=== PATIENT | female | born 1935 | race Caucasian/White ===

== ENCOUNTER 2016-08-14 17:42 | Emergency (ER) | payer MEDICARE, OTHER ==
[~2016-08-14] VITALS: Ht 162.6 cm; Wt 77.3 kg
[~2016-08-14 17:42] MED LIST: ADVIL 200MG TA200 MG PO; ALAVERT10 M1 PO; ALLEGRA180 MG PO; ALLOPURINOL300 MG PO; AMLOPIDINE PO; ASPIR-LOW81 MG PO; ASPIRIN E.C.325 MG PO; BENICAR 20MG TA20 MG PO; BYSTOLIC PO; BYSTOLIC10 MG PO; CATAPRES-T0.2 MG/24 TD; CELEXA 20MG20 MG/TAB PO; CELEXA10 MG PO; CENTRUM1 TAB PO; CETIRIZINE PO; CITALOPRAM HYDR20 MG PO; COLCHICINE0.6 MG PO; COZAAR100 MG PO; DIAZEPAM PO; DIOVAN 80MG80 MG PO; DIOVAN PO; DIOVAN160 MG PO; ELIMITE TOP; EPA FISH OIL1000 MG PO; FISH OIL CONC1000 MG PO; FLEXERIL5 MG PO; GEMCOR600 MG PO; HCTZ 25MG25 MG PO; INDOMETHACIN25 MG PO; LASIX PO; LEVOTHYROXIN0.025 M1 PO; LORTAB 2.5/5001 TAB PO; MOTRIN 800800 MG/TAB PO; MVI PO; NAPROXEN 3375 MG/TAB PO; NORCO 325 MG-51 TAB PO; NORVASC 10MG10 MG PO; NORVASC10 MG PO; PERCOCET 325 MG1 TA2 PO; PREDNISONE; RED YEAST RICE; SINGULAIR 110 MG/TAB PO; SINGULAIR10 MG PO; TOPROL XL 50MG50 MG PO; TRIAMCINOLONE A15 GM TP; TYLENOL EXTRA500 M1 PO; UNABLE; VALIUM 2MG T2 MG/TAB PO; VICODIN 5/5001 UDTAB PO; VITAMIN D5000 IU PO; ZYRTEC 10MG PO; ZYRTEC 10MG10 MG PO
[2016-08-14 17:43] VITALS: TEMP 98.8
[2016-08-14 18:38] LABS: BASO % 0.3 % (0.0-2.0); EOS # 0.1 (0.0-0.7); EOS % 1.2 % (0-4.0); GRAN # 3.8 (1.4-6.5); GRAN % 57.8 % (42.2-75.2); HEMOGLOBIN 13.6 g/dl (12.5-16.0); LYMPH # 1.7 (1.2-3.4); LYMPH % 25.3 % (20.0-51.0); MEAN CELL VOLUME 89 fl (80.0-100.0); MEAN CORPUSCULAR HEMOGLOBIN 30 pg (27.0-31.0); MEAN CORPUSCULAR HGB CONC 33 g/dl (33.0-37.0); MEAN PLATELET VOLUME 9.8 fl (7.4-10.4); MONO % 14.9 % (1.7-9.3); PLATELET COUNT 245 K/mm3 (130-400); RED BLOOD COUNT 4.61 M/mm3 (4.10-5.30); REDCELL DISTRIBUTION WIDTH-CV 13.1 % (11.5-14.5); WHITE BLOOD COUNT 6.5 K/mm3 (4.8-10.8)
[2016-08-14 18:51] LABS: ALBUMIN 4.2 gm/dL (3.5-5.0); BILIRUBIN,TOTAL 0.8 mg/dL (0.0-1.0); C-REACTIVE PROTEIN 4.2 mg/dL (0.0-0.9); CALCIUM 9.2 mg/dL (8.4-10.2); CREATININE, serum 1.73 mg/dL (0.52-1.25); POTASSIUM 4.4 mmol/L (3.4-5.0)
[2016-08-14] MEDS ORDERED: CHERATUSSIN AC120 ML PO (19:23)
[2016-08-14 22:31] VITALS: BP 130/57; PULSE 62
== END 2016-08-14 19:54 | disposition home or self-care (01) ==
LOC: COL.ER 17:42
PROVIDERS: Family Medicine
DX: J11.1 Influenza due to unidentified influenza virus with other respiratory manifestations (principal); I10 Essential (primary) hypertension; J45.909 Unspecified asthma, uncomplicated
CPT/HCPCS: J2405; J7030

== ENCOUNTER → 2016-10-17 | Outpatient (CLI) | payer MEDICARE, OTHER ==
[~2016-10-17] MED LIST changes: +CHERATUSSIN AC120 ML PO
== END ==
LOC: MC.RAD 14:02
DX: Z12.31 Encounter for screening mammogram for malignant neoplasm of breast (principal)

== ENCOUNTER 2017-10-05 06:47 | Day surgery (SDC) | payer MEDICARE, OTHER ==
[~2017-10-05] VITALS: Ht 167.6 cm; Wt 78.1 kg
[2017-10-05] VITALS (12 sets, daily range): BP systolic 119–172; BP diastolic 48–73; PULSE 16–72; TEMP 97.7
[2017-10-05 07:26] LABS: HEMATOCRIT 40.9 % (37.0-47.0); MEAN CELL VOLUME 86 fl (80.0-100.0); MEAN CORPUSCULAR HEMOGLOBIN 27 pg (27.0-31.0); MEAN CORPUSCULAR HGB CONC 32 g/dl (33.0-37.0); MEAN PLATELET VOLUME 9.2 fl (7.4-10.4); PLATELET COUNT 327 K/mm3 (130-400); RED BLOOD COUNT 4.76 M/mm3 (4.10-5.30); REDCELL DISTRIBUTION WIDTH-CV 13.2 % (11.5-14.5)
[2017-10-05 07:40] LABS: CALCIUM 9.5 mg/dL (8.4-10.2); CREATININE, serum 0.85 mg/dL (0.52-1.25); POTASSIUM 4.4 mmol/L (3.4-5.0)
[2017-10-05 07:44] LABS: PROTHROMBIN TIME 11.5 SECONDS (9.7-12.8)
[2017-10-05] MEDS ORDERED: ASPIRIN 81M81 MG/TA2 PO (08:05)
[2017-10-05] MEDS ORDERED: LIPITOR 10MG10 MG PO (08:25)
[2017-10-05] MEDS ORDERED: LASIX 20MG TABL20 MG PO (08:26)
[2017-10-05 10:17] LABS: ARTERIAL BLD GAS TCO2 CT 30.4; ARTERIAL BLOOD GAS BASE EXCESS 2.6 (-2-2); ARTERIAL BLOOD GAS HCO3 28.8 meq/L (22-26); ARTERIAL BLOOD GAS PCO2 51.2 mmHg (35-45); ARTERIAL BLOOD GAS PO2 88.1 mmHg (80-100); ARTERIAL BLOOD GAS pH 7.37 (7.35-7.45)
[2017-10-05] MEDS ORDERED: TOPROL XL100 MG PO (11:38)
== END 2017-10-05 15:57 | disposition home or self-care (01) ==
LOC: COL.CAR 06:47
PROVIDERS: Internal Medicine Cardiovascular Disease; Nurse Practitioner
DX: I25.10 Atherosclerotic heart disease of native coronary artery without angina pectoris (principal); I35.0 Nonrheumatic aortic (valve) stenosis; I27.20 Pulmonary hypertension, unspecified; I08.3 Combined rheumatic disorders of mitral, aortic and tricuspid valves; I10 Essential (primary) hypertension; E78.5 Hyperlipidemia, unspecified; I42.2 Other hypertrophic cardiomyopathy; M10.9 Gout, unspecified; Z88.0 Allergy status to penicillin; Z88.8 Allergy status to other drugs, medicaments and biological substances; Z79.82 Long term (current) use of aspirin; I49.3 Ventricular premature depolarization
CPT/HCPCS: J2250; J3010; Q9967

== ENCOUNTER 2018-05-05 12:22 | Outpatient (RCR) | payer MEDICARE, OTHER ==
[~2018-05-05 12:22] MED LIST changes: +ASPIRIN 81M81 MG/TA2 PO; +LASIX 20MG TABL20 MG PO; +LIPITOR 10MG10 MG PO; +TOPROL XL100 MG PO
== END 2018-05-11 | disposition home or self-care (01) ==
LOC: COL.CR
DX: Z48.812 Encounter for surgical aftercare following surgery on the circulatory system (principal); Z95.2 Presence of prosthetic heart valve

== ENCOUNTER → 2018-12-10 | Outpatient (CLI) | payer MEDICARE, OTHER | LOC: MC.RAD 08:45 | DX: Z12.31 Encounter for screening mammogram for malignant neoplasm of breast (principal) ==

== ENCOUNTER 2019-01-03 14:15 | Outpatient (RCR) | payer MEDICARE, OTHER | END 2019-01-09 | disposition still patient (30) | LOC: WSST | DX: R49.0 Dysphonia (principal) ==

== ENCOUNTER 2019-01-31 13:00 | Outpatient (RCR) | payer MEDICARE, OTHER | END 2019-03-22 08:15 | disposition home or self-care (01) | LOC: WSST 13:00 | DX: R49.0 Dysphonia (principal) ==

== ENCOUNTER 2020-02-14 11:50 | Emergency (ER) | payer MEDICARE, OTHER ==
[~2020-02-14] VITALS: Ht 167.6 cm; Wt 81.8 kg
[2020-02-14 11:53] VITALS: TEMP 98.2
[2020-02-14] MEDS ORDERED: CELEXA10 MG PO (13:07)
[2020-02-14] MEDS ORDERED: XARELTO15 MG PO (13:25)
[2020-02-14 13:42] VITALS: BP 154/73; PULSE 66
== END 2020-02-14 14:27 | disposition home or self-care (01) ==
LOC: COL.ER 11:50
DX: S40.019A Contusion of unspecified shoulder, initial encounter (principal); Z86.718 Personal history of other venous thrombosis and embolism; Z79.82 Long term (current) use of aspirin; Z88.3 Allergy status to other anti-infective agents; W01.10XA Fall on same level from slipping, tripping and stumbling with subsequent striking against unspecified object, initial encounter; Y92.091 Bathroom in other non-institutional residence as the place of occurrence of the external cause
CPT/HCPCS: J3010

== ENCOUNTER → 2020-04-04 | Outpatient (CLI) | payer MEDICARE ==
[~2020-04-04] MED LIST changes: +XARELTO15 MG PO
== END ==
LOC: MC.RAD 09:23
DX: Z12.31 Encounter for screening mammogram for malignant neoplasm of breast (principal)

== ENCOUNTER 2021-03-08 09:04 | Day surgery (SDC) | payer MEDICARE ==
[~2021-03-08] VITALS: Ht 162.6 cm; Wt 78.4 kg
[2021-03-08 09:29] VITALS: BP 180/69; PULSE 85; TEMP 97.8
[2021-03-08] MEDS ORDERED: LIPITOR 80MG80 MG PO (09:55)
[2021-03-08] MEDS ORDERED: ALDACTONE 25MG25 M1 PO (09:58)
[2021-03-08] MEDS ORDERED: MASON NATURAL2000 IU PO (09:59)
[2021-03-08] MEDS ORDERED: B-121000 MCG PO (09:59)
[2021-03-08] MEDS ORDERED: PROTONIX 40MG T40 MG PO (10:00)
[2021-03-08] MEDS ORDERED: DESYREL 50MG50 MG PO (10:01)
[2021-03-08] MEDS ORDERED: HYDRODIURIL50 MG PO (10:01)
[2021-03-08 11:05] VITALS: BP 152/58; PULSE 59; TEMP 97.3
[2021-03-08 11:15] VITALS: BP 167/61; PULSE 62
[2021-03-08 11:30] VITALS: BP 167/54; PULSE 61
[2021-03-08 11:55] VITALS: BP 124/54; PULSE 56
--- NOTE | 2021-03-08 12:15 | NUR ---
1105: PATIENT ARRIVED BACK INTO BAY [facility]. SIGNIFICANT OTHER AT BEDSIDE. VITALLY STABLE. PATIENT REQUESTING ORANGE JUICE AND MUFFIN, TOLERATED WELL. 1115: VITALLY STABLE. 1130: VITALLY STABLE. DR. SCHAFFER TO SEE PT. QUESTIONS ANSWERED. 1145: PATIENT WENT TO RESTROOM AND GOT DRESSED. 1150: PATIENT ESCORTED TO ENTRANCE OF HOSPITAL VIA WHEELCHAIR, PATIENT'S SO PULLED UP CAR.
== END 2021-03-08 11:54 | disposition home or self-care (01) ==
LOC: SDCO 09:04
DX: D12.3 Benign neoplasm of transverse colon (principal); D12.0 Benign neoplasm of cecum; I10 Essential (primary) hypertension; I34.0 Nonrheumatic mitral (valve) insufficiency; I49.3 Ventricular premature depolarization; I99.8 Other disorder of circulatory system; E78.5 Hyperlipidemia, unspecified; K21.9 Gastro-esophageal reflux disease without esophagitis; M19.90 Unspecified osteoarthritis, unspecified site; M10.9 Gout, unspecified; D50.9 Iron deficiency anemia, unspecified; J30.9 Allergic rhinitis, unspecified; F32.9 Major depressive disorder, single episode, unspecified; F41.9 Anxiety disorder, unspecified; Z20.822 Contact with and (suspected) exposure to COVID-19; Z79.82 Long term (current) use of aspirin; Z79.899 Other long term (current) drug therapy
CPT/HCPCS: J2704; J7120

== ENCOUNTER 2022-04-28 03:11 | Observation (INO) | payer MEDICARE ==
[~2022-04-28] VITALS: Ht 167.6 cm; Wt 72.1 kg
[~2022-04-28 03:11] MED LIST changes: +ADALAT CC60 MG PO; +ALDACTONE 25MG25 M1 PO; +B-121000 MCG PO; +CALCIUM 600600 MG PO; +COREG CR40 MG PO; +DESYREL 50MG50 MG PO; +DOXYCYCLINE HY100 MG PO; +HYDRODIURIL50 MG PO; +LASIX 40MG TABL40 MG PO; +LIPITOR 80MG80 MG PO; +MASON NATURAL2000 IU PO; +OMNICEF 300MG300 MG PO; +PREDNISONE20 MG PO; +PROTONIX 40MG T40 MG PO
[2022-04-28 03:42] LABS: BASO % 0.3 % (0.0-2.0); EOS # 0.4 K/mm3 (0.0-0.7); EOS % 3.7 % (0.0-4.0); GRAN # 8.8 K/mm3 (1.4-6.5); GRAN % 73.9 % (42.2-75.2); HEMATOCRIT 29.4 % (37.0-47.0); HEMOGLOBIN 9.6 g/dl (12.5-16.0); LYMPH # 1.8 K/mm3 (1.2-3.4); LYMPH % 14.7 % (20.0-51.0); MEAN CELL VOLUME 82 fl (80.0-100.0); MEAN CORPUSCULAR HEMOGLOBIN 27 pg (27-31); MEAN CORPUSCULAR HGB CONC 33 g/dl (33.0-37.0); MEAN PLATELET VOLUME 9.1 fl (7.4-10.4); MONO # 0.8 K/mm3 (0.1-0.6); MONO % 6.5 % (1.7-9.3); PLATELET COUNT 407 K/mm3 (130-400); RED BLOOD COUNT 3.57 M/mm3 (4.10-5.30); REDCELL DISTRIBUTION WIDTH-CV 14.4 % (11.5-14.5)
[2022-04-28 04:00] LABS: ALANINE AMINOTRANSFERASE 12 U/L (0-55); ALBUMIN 2.8 gm/dL (3.4-4.8); ALKALINE PHOSPHATASE 75 U/L (40-150); ANION GAP 11 mmol/L (7-16); AST,SGOT 18 U/L (5-34); BILIRUBIN,TOTAL 0.5 mg/dL (0.2-1.2); BLOOD UREA NITROGEN 16 mg/dL (10-20); CALCIUM 8.2 mg/dL (8.4-10.2); CARBON DIOXIDE 21 mmol/L (23-31); CHLORIDE 106 mmol/L (98-107); CREATININE, serum 0.81 mg/dL (0.57-1.11); GLUCOSE 94 mg/dL (70-99); SODIUM 138 mmol/L (136-145); TOTAL PROTEIN 6.5 gm/dL (6.2-8.1)
[2022-04-28 04:08] LABS: TROPONIN-I < 0.010 ng/mL (0.00-0.033)
[2022-04-28 05:13] LABS: COLLECTION METHOD CLEAN CATCH
[2022-04-28 05:21] LABS: SQUAMOUS EPITHELIAL 0-2 /hpf (0-10); URINE BACTERIA None Seen /hpf (NONE SEEN); URINE RBC 0-2 /hpf (0-2)
[2022-04-28 05:22] LABS: PH 7.5 (5.0-8.5); URINE APPEARANCE Clear (CLEAR/HAZY); URINE BLOOD Negative (NEGATIVE); URINE COLOR Yellow (YELLOW); URINE GLUCOSE Negative (NEGATIVE); URINE KETONE Negative (NEGATIVE); URINE NITRATE Negative (NEGATIVE); URINE PROTEIN(semi-quant) TRACE (NEGATIVE); URINE UROBILINOGEN 0.2 E.U/dL (0.2-1.0)
[2022-04-28 09:14] VITALS: BP 164/72; PULSE 58; TEMP 98.1
--- NOTE | 2022-04-28 09:30 | NUR ---
Patient admitted to room 359 from ED. Allergies, medications, and pharmacy reviewed. Admission paperwork completed. Patient hypertensive, but states that she has not take any of her "normal" morning medications. Dr. Kay made of aware. Remainder of VSS. Patient currently requring 2L of O2 via nasal cannula. Denies any SOB at this time. Patient denies any further pain, discomfort, SOA, or further needs at this time. Call light in reach.
--- NOTE | 2022-04-28 11:40 | NUR ---
Patient requested that her money be placed in the hospital safe. Money counted out in front of patient, total of $39.00 counted and placed in sealed envelope. Rachel, Clinical Training Coordinator took custody of envelope. Patient's bank card sent home with her daughter, Mireya.
[2022-04-28 16:00] VITALS: BP 185/57; PULSE 57; TEMP 99
[2022-04-28 18:00] VITALS: BP 155/47
[2022-04-28 20:24] VITALS: BP 151/46; PULSE 63; TEMP 98
--- NOTE | 2022-04-28 20:30 | NUR ---
Initial shift assessment done- very pleasant, o2 at 3L/nc, denies SOB at this time, states has had alot of urine output in the past couple hours- no hat in toilet so one put in now so we can get accurate output. tele on, Denies pain.
[2022-04-29] VITALS (7 sets, daily range): BP systolic 118–141; BP diastolic 38–52; PULSE 52–85; TEMP 97.6–98.8
[2022-04-29 06:18] LABS: BASO % 0.2 % (0.0-2.0); EOS # 0.3 K/mm3 (0.0-0.7); EOS % 2.5 % (0.0-4.0); GRAN # 8.6 K/mm3 (1.4-6.5); GRAN % 69.2 % (42.2-75.2); LYMPH # 2.4 K/mm3 (1.2-3.4); LYMPH % 19.4 % (20.0-51.0); MEAN CELL VOLUME 85 fl (80.0-100.0); MEAN CORPUSCULAR HGB CONC 31 g/dl (33.0-37.0); MEAN PLATELET VOLUME 9.4 fl (7.4-10.4); MONO % 8.1 % (1.7-9.3); PLATELET COUNT 365 K/mm3 (130-400); RED BLOOD COUNT 3.44 M/mm3 (4.10-5.30); REDCELL DISTRIBUTION WIDTH-CV 14.6 % (11.5-14.5)
[2022-04-29 06:33] LABS: HEMATOCRIT 29.1 % (37.0-47.0); MEAN CORPUSCULAR HEMOGLOBIN 26 pg (27-31)
[2022-04-29 06:43] LABS: ALBUMIN 2.3 gm/dL (3.4-4.8); CALCIUM 8.2 mg/dL (8.4-10.2); CREATININE, serum 0.88 mg/dL (0.57-1.11); MAGNESIUM 1.4 mg/dL (1.6-2.6); PHOSPHOROUS 3.5 mg/dL (2.3-4.7); POTASSIUM 3.9 mmol/L (3.5-4.5)
--- NOTE | 2022-04-29 08:00 | NUR ---
Pt sitting up and eating breakfast. Morning medications administered per eMAR; Betablocker held as pt HR is 55. Shift assessment completed. Pt on 1.5L per NC with O2 sat at 94%. Telemetry on; bradycardic. INT in R FA intact. RLE larger than LLE; wrinkles noted on SURAJ. No further requests at this time. Call light within reach.
--- NOTE | 2022-04-29 08:51 | NUR ---
IV lasix given per orders.
--- NOTE | 2022-04-29 09:54 | NUR ---
Initial visit; Patient thanked Core Analysis Operator for stopping by and says she is doing well and would like to be kept in Core Analysis Operator's prayers. Core Analysis Operator wished her well and offered God's blessings.
--- NOTE | 2022-04-29 14:33 | NUR ---
Case Managers met with patient to discuss discharge planning. Patient lives alone at [facility] in [place] and sees Dr. Bosch for primary care. Patient has medications delivered from [facility] pharmacy and does not normally use any DME, but has a walker if needed. Patient does not wear oxygen at home. Patient is normally independent with ADLS and plans to return home at time of discharge. Patient would like to update her DPOA-HC to her daughter, Mireya and grandson, Vishun. YANNI assisted patient in completing the form, then YANNI and YANNI Patel provided witness signature. YANNI provided original and copies to patient, then placed a copy in patient's chart. Discharge Plan: Home
--- NOTE | 2022-04-29 20:00 | NUR ---
Initial shift assessment done- pt sitting at side of bed denies pain, states has some "indigestion/nausea" states the salad she ate earlier did not settle well, will call Naomy ROSARIO for orders, Up to bathroom, voided 200cc clear yellow urine. Back to bed.Tele on.
--- NOTE | 2022-04-29 21:00 | NUR ---
Zofran IV given for nausea/vomiting- has had about 100-200cc emesis,undigested food.
--- NOTE | 2022-04-29 22:00 | NUR ---
Another emesis all over the bed- states she feels better now that "its all out", linens changed, back to bed- will continue to assess.
[2022-04-30 04:40] VITALS: BP 116/45; PULSE 58; TEMP 98.4
--- NOTE | 2022-04-30 06:08 | NUR ---
Has been resting well for the past 3-4 hours, VSS
[2022-04-30 06:50] LABS: BASO % 0.2 % (0.0-2.0); EOS # 0.2 K/mm3 (0.0-0.7); EOS % 1.2 % (0.0-4.0); GRAN # 11.2 K/mm3 (1.4-6.5); GRAN % 77.4 % (42.2-75.2); LYMPH % 13.7 % (20.0-51.0); MEAN CELL VOLUME 84 fl (80.0-100.0); MEAN CORPUSCULAR HGB CONC 32 g/dl (33.0-37.0); MEAN PLATELET VOLUME 9.5 fl (7.4-10.4); MONO % 6.8 % (1.7-9.3); PLATELET COUNT 365 K/mm3 (130-400); RED BLOOD COUNT 3.36 M/mm3 (4.10-5.30); REDCELL DISTRIBUTION WIDTH-CV 14.5 % (11.5-14.5)
[2022-04-30 07:04] LABS: HEMATOCRIT 28.1 % (37.0-47.0); MEAN CORPUSCULAR HEMOGLOBIN 27 pg (27-31)
[2022-04-30 07:11] VITALS: BP 128/43; PULSE 55; TEMP 98.5
[2022-04-30 07:14] LABS: CREATININE, serum 1.16 mg/dL (0.57-1.11); POTASSIUM 4.3 mmol/L (3.5-4.5)
[2022-04-30 07:24] LABS: ALBUMIN 2.5 gm/dL (3.4-4.8); CALCIUM 7.8 mg/dL (8.4-10.2); CREATININE, serum 1.12 mg/dL (0.57-1.11); PHOSPHOROUS 4.3 mg/dL (2.3-4.7); POTASSIUM 4.6 mmol/L (3.5-4.5)
--- NOTE | 2022-04-30 11:20 | NUR ---
Mixer Operator Helper Hot Metal attended clinical rounds with the team and patient may discharge today. Hospitalist discussed Home Health services with patient who is agreeable. Patient will also need two liters of oxygen at home. YANNI met with patient and provided Medicare.gov list of HH agencies. Patient selected [facility]. Patient also stated she has used [facility] in the past for oxygen and would like to use them again. YANNI updated patient's daughter, Mireya on discharge plan. YANNI contacted Nisa at [facility] and faxed referral. YANNI also faxed referral to [facility]. Hospitalist advised they will keep patient another day. YANNI updated [facility] and [facility]. Discharge Plan: Home with [facility]
[2022-04-30 12:07] VITALS: BP 112/49; PULSE 54; TEMP 98.2
[2022-04-30 16:18] VITALS: BP 130/47; PULSE 59; TEMP 97.7
[2022-04-30 19:45] VITALS: BP 134/44; PULSE 57; TEMP 98
--- NOTE | 2022-05-01 00:08 | NUR ---
SHIFT NURSING ASSESSMENT COMPLETED. THE PATIENT WAS NOT IN ANY DISTRESS UPON ASSESSMENT. UPON FLUSHING THE PTS PIV IT WAS NOTED TO BE LEAKING. THE LEFT AC PIV WAS REMOVED AND A NEW 20G RIGHT AC PIV PLACED WITHOUT DIFFICULTY. THE PATIENT DENIED PAIN AT THIS TIME. EVENING MEDICATIONS DISCUSSED AND THE PLAN OF CARE WELL. NO NEEDS EXPRESSED. CALL LIGHT AND PERSONAL BELONGINGS WITHIN REACH. BED IN LOW POSITION AND BED ALARM ON. WILL MONITOR.
[2022-05-01 00:16] VITALS: BP 127/46; PULSE 49; TEMP 98.3
[2022-05-01 03:23] VITALS: BP 138/45; PULSE 53; TEMP 98.3
[2022-05-01 06:38] LABS: BASO % 0.2 % (0.0-2.0); EOS # 0.4 K/mm3 (0.0-0.7); EOS % 3.5 % (0.0-4.0); GRAN % 66.8 % (42.2-75.2); LYMPH # 2.2 K/mm3 (1.2-3.4); LYMPH % 21.1 % (20.0-51.0); MEAN CELL VOLUME 86 fl (80.0-100.0); MEAN CORPUSCULAR HGB CONC 30 g/dl (33.0-37.0); MEAN PLATELET VOLUME 9.9 fl (7.4-10.4); MONO # 0.8 K/mm3 (0.1-0.6); MONO % 7.8 % (1.7-9.3); PLATELET COUNT 348 K/mm3 (130-400); RED BLOOD COUNT 3.41 M/mm3 (4.10-5.30); REDCELL DISTRIBUTION WIDTH-CV 14.5 % (11.5-14.5)
[2022-05-01 06:43] LABS: HEMATOCRIT 29.3 % (37.0-47.0); HEMOGLOBIN 8.9 g/dl (12.5-16.0); MEAN CORPUSCULAR HEMOGLOBIN 26 pg (27-31)
[2022-05-01 06:55] LABS: ALBUMIN 2.5 gm/dL (3.4-4.8); CREATININE, serum 0.94 mg/dL (0.57-1.11); MAGNESIUM 1.7 mg/dL (1.6-2.6); PHOSPHOROUS 3.6 mg/dL (2.3-4.7); POTASSIUM 4.2 mmol/L (3.5-4.5)
[2022-05-01 07:07] VITALS: BP 130/71; PULSE 52; TEMP 98.3
[2022-05-01] MEDS ORDERED: ALDACTONE 25MG25 M1 PO (08:21)
[2022-05-01] MEDS ORDERED: BUMEX 1MG TA1 MG/TA1 PO (08:22)
[2022-05-01] MEDS ORDERED: OXYGEN (08:24)
--- NOTE | 2022-05-01 09:35 | NUR ---
PT AMBULATING AROUND ROOM. MORNING MEDICATIONS GIVEN. SHIFT ASSESSMENT COMPLETED. IV D/C. TELE D/C. PT EAGER TO D/C HOME TO DAY, ORDERS IN PLACE, WAITING FOR PROTABLE O2 TO ARRIVE. PT CURRENTLY REQUIRING 2L VIA NC AT ALL TIMES. PT PERSONAL BELONGINGS OBTAINED FROM [employer] LAUNCH COMMANDER. DENIES ANY OTHER NEEDS AT THIS TIME. WILL CONTINUE TO MONITOR.
--- NOTE | 2022-05-01 11:05 | NUR ---
DISCHARGE INSTRUCTIONS GIVEN, ALL QUESTIONS ANSWERED, FAMILY AT BEDSIDE. PT ENVELOPE RETURNED, PT STATES ALL BELONGINGS ARE NOW IN HER POSSESSION. WAITING FOR PORTABLE OXYGEN TO ARRIVE.
--- NOTE | 2022-05-01 11:52 | NUR ---
PT ESCORTED OFF OF UNIT BY [facility]IA [facility] STAFF.
--- NOTE | 2022-05-01 13:12 | NUR ---
Patient to discharge today. YANNI contacted [facility] and faxed oxygen order. Anirudh with [facility] delivered a portable tank to patient's roon. YANNI contacted [facility] and faxed discharge orders. Discharge Plan: Home with oxygen and [facility]
== END 2022-05-01 11:53 | disposition home or self-care (01) ==
LOC: COL.ER 03:11 → MEDICAL 07:01
PROVIDERS: Internal Medicine; Personal Emergency Response Attendant; ADMIT Internal Medicine
DX: J96.01 Acute respiratory failure with hypoxia (principal); I11.0 Hypertensive heart disease with heart failure; I50.9 Heart failure, unspecified; I25.10 Atherosclerotic heart disease of native coronary artery without angina pectoris; K21.9 Gastro-esophageal reflux disease without esophagitis; E78.5 Hyperlipidemia, unspecified; D64.9 Anemia, unspecified; I07.1 Rheumatic tricuspid insufficiency; Z20.822 Contact with and (suspected) exposure to COVID-19; D72.829 Elevated white blood cell count, unspecified; F32.A Depression, unspecified; Z79.82 Long term (current) use of aspirin; Z79.899 Other long term (current) drug therapy; Z95.2 Presence of prosthetic heart valve; Z95.818 Presence of other cardiac implants and grafts
CPT/HCPCS: A9284; G0378; J1940; J2405; J3475; J7050; Q9967

== ENCOUNTER 2022-05-09 19:30 | Emergency (ER) | payer MEDICARE ==
[~2022-05-09] VITALS: Ht 167.6 cm; Wt 69.1 kg
[2022-05-09 19:30] VITALS: TEMP 97.8
[~2022-05-09 19:30] MED LIST changes: +BUMEX 1MG TA1 MG/TA1 PO; +OXYGEN
[2022-05-09 20:13] LABS: BASO % 0.4 % (0.0-2.0); EOS # 0.3 K/mm3 (0.0-0.7); EOS % 2.5 % (0.0-4.0); GRAN # 7.3 K/mm3 (1.4-6.5); GRAN % 66.7 % (42.2-75.2); HEMATOCRIT 31.1 % (37.0-47.0); LYMPH # 2.5 K/mm3 (1.2-3.4); LYMPH % 23.2 % (20.0-51.0); MEAN CELL VOLUME 83 fl (80.0-100.0); MEAN CORPUSCULAR HEMOGLOBIN 27 pg (27-31); MEAN CORPUSCULAR HGB CONC 32 g/dl (33.0-37.0); MEAN PLATELET VOLUME 9.6 fl (7.4-10.4); MONO # 0.7 K/mm3 (0.1-0.6); MONO % 6.7 % (1.7-9.3); PLATELET COUNT 335 K/mm3 (130-400); RED BLOOD COUNT 3.74 M/mm3 (4.10-5.30); REDCELL DISTRIBUTION WIDTH-CV 14.3 % (11.5-14.5)
[2022-05-09 20:26] LABS: ALBUMIN 3.4 gm/dL (3.4-4.8); BILIRUBIN,TOTAL 0.3 mg/dL (0.2-1.2); CREATININE, serum 1.54 mg/dL (0.57-1.11); TOTAL PROTEIN 6.8 gm/dL (6.2-8.1)
[2022-05-09 20:29] LABS: POTASSIUM 5.8 mmol/L (3.5-4.5)
[2022-05-09 21:44] VITALS: BP 145/60; PULSE 60
== END 2022-05-09 21:46 | disposition home or self-care (01) ==
LOC: COL.ER 19:30
PROVIDERS: Physician Assistant
DX: E87.5 Hyperkalemia (principal)
CPT/HCPCS: J1940

== ENCOUNTER 2022-07-31 23:00 | Emergency (ER) | payer MEDICARE ==
[~2022-07-31] VITALS: Ht 165.2 cm; Wt 71.8 kg
[~2022-07-31 23:00] MED LIST changes: +COREG 25MG25 MG/TAB PO
[2022-07-31 23:01] VITALS: TEMP 98.2
[2022-07-31 23:30] LABS: BASO # 0.1 K/mm3 (0.0-0.2); BASO % 0.3 % (0.0-2.0); EOS # 0.4 K/mm3 (0.0-0.7); EOS % 2.4 % (0.0-4.0); GRAN % 75.1 % (42.2-75.2); HEMOGLOBIN 11.2 g/dl (12.5-16.0); LYMPH # 2.5 K/mm3 (1.2-3.4); LYMPH % 16.9 % (20.0-51.0); MEAN CELL VOLUME 82 fl (80.0-100.0); MEAN CORPUSCULAR HEMOGLOBIN 26 pg (27-31); MEAN CORPUSCULAR HGB CONC 32 g/dl (33.0-37.0); MEAN PLATELET VOLUME 9.7 fl (7.4-10.4); MONO # 0.7 K/mm3 (0.1-0.6); PLATELET COUNT 302 K/mm3 (130-400); RED BLOOD COUNT 4.25 M/mm3 (4.10-5.30); REDCELL DISTRIBUTION WIDTH-CV 15.3 % (11.5-14.5)
[2022-07-31 23:40] LABS: BILIRUBIN,TOTAL 0.6 mg/dL (0.2-1.2); CALCIUM 9.6 mg/dL (8.4-10.2); POTASSIUM 4.3 mmol/L (3.5-4.5)
[2022-07-31 23:46] LABS: TROPONIN-I 0.015 ng/mL (0.00-0.033)
[2022-08-01 00:11] LABS: ALBUMIN 3.7 gm/dL (3.4-4.8); CREATININE, serum 0.92 mg/dL (0.57-1.11); TOTAL PROTEIN 7.4 gm/dL (6.2-8.1)
[2022-08-01] MEDS ORDERED: PAXLOVID CO-PA1 EACH PO (02:39)
[2022-08-01 10:07] VITALS: BP 158/60; PULSE 56
== END 2022-08-01 09:00 | disposition home or self-care (01) ==
LOC: COL.ER 23:00
PROVIDERS: Nurse Practitioner
DX: U07.1 COVID-19 (principal); R06.02 Shortness of breath; I11.0 Hypertensive heart disease with heart failure; I50.9 Heart failure, unspecified; J96.10 Chronic respiratory failure, unspecified whether with hypoxia or hypercapnia; Z99.81 Dependence on supplemental oxygen

== ENCOUNTER 2023-08-03 10:38 | Outpatient (RCR) | payer MEDICARE ==
[~2023-08-03] VITALS: Ht 165.1 cm; Wt 67.4 kg
[2023-08-03] VITALS (12 sets, daily range): BP systolic 137–173; BP diastolic 45–66; PULSE 61–67; TEMP 98.4–98.9
[~2023-08-03 10:38] MED LIST changes: +COREG 6.256.25 MG/TA PO; +ELIQUIS 5MG PO; +FERROUS FUMARA324 MG; +FERROUS GL325 MG/TAB PO; +MULTAQ400 MG PO; +PAXLOVID CO-PA1 EACH PO; +PROCARDIA XL90 MG PO
[2023-08-03] MEDS ORDERED: RECLAST5 MG/100 M IV (11:43)
[2023-08-03] MEDS ORDERED: ADALAT CC30 MG PO (13:23)
[2023-08-03] MEDS ORDERED: ADALAT CC90 MG PO (13:24)
--- NOTE | 2023-08-03 15:21 | NUR ---
Report to Keisha Ocasio.
== END 2023-08-03 17:15 | disposition home or self-care (01) ==
LOC: EUO 10:38
DX: D64.9 Anemia, unspecified (principal)
CPT/HCPCS: J7050; P9016

== ENCOUNTER 2023-08-24 12:30 | Day surgery (SDC) | payer MEDICARE ==
[~2023-08-24] VITALS: Ht 165.1 cm; Wt 67.2 kg
[~2023-08-24 12:30] MED LIST changes: +ADALAT CC30 MG PO; +ADALAT CC90 MG PO; +LR 1,000 ML IV SCH; +Ondansetron 4 MG/2 ML VIAL IV PRN; +RECLAST5 MG/100 M IV
[2023-08-24] MEDS ORDERED: ELIQUIS 5MG PO (13:15)
[2023-08-24 15:15] VITALS: BP 115/82; PULSE 57; TEMP 98.1
[2023-08-24 15:30] VITALS: BP 153/83; PULSE 60
[2023-08-24 15:45] VITALS: BP 155/80; PULSE 58
[2023-08-24 15:48] VITALS: BP 157/51; PULSE 65; TEMP 97.8
--- NOTE | 2023-08-24 15:50 | NUR ---
1305 PT TO [facility] VIA WHEEL CHAIR. PT ABLE TO TRANSFER FROM THE WHEEL CHAIR TO THE RECLINER INDEPENDENTLY. REPORTS THAT SHE DOES NOT USE AN ASSISTIVE DEVICE AT HOME. PT IS WEARING O2 VIA NC AT 2L. SHE STATES SHE NORMALLY ONLY USES O2 AT NIGHT AND SOMETIMES WHEN SHE IS AWAY FROM HOME. PT IS ALERT AND ORIENTED. CONSENTS REVIEWED AND SIGNED BY PT. IV ESTABLISHED. LR INFUSING VIA GRAVITY AT KVO. CALL LIGHT IS IN REACH. WARM BLANKETS PROVIDED.
--- NOTE | 2023-08-24 16:07 | NUR ---
1515 PATIENT RETURNS TO [facility] VIA CART. PT AWAKE AND ALERT. RESPIRATIONS UNLABORED. AMBULATED TO RECLINER CHAIR WITH 2:1 SBA. PT DENIES NAUSEA OR ABDOMINAL PAIN. HOOKED UP TO MONITOR AND VS OBTAINED. CALL LIGHT AT SIDE AND DAUGHTER PRESENT. 1519 PATIENT TOLERATING PEPSI AND MUFFIN WITHOUT NAUSEA OR DIFFICULTY SWALLOWING (EGD ONLY). 1530 DR. PEDERSON IN ROOM SPEAKING WITH PATIENT. 1535 D/C INSTRUCTIONS REVIEWED WITH PATIENT. PT VERBALIZED UNDERSTANDING AND A COPY OF INSTRUCTIONS PROVIDED IN D/C FOLDER. 1540 PATIENT DRESSES SELF. 1550 PATIENT DISCHARGED FROM UNIT VIA W/C TO A PERSONAL VEHICLE. PT LEFT HOSPITAL IN STABLE CONDITION.
== END 2023-08-24 15:50 | disposition home or self-care (01) ==
LOC: SDCO 12:30
DX: K31.7 Polyp of stomach and duodenum (principal); K44.9 Diaphragmatic hernia without obstruction or gangrene; K92.1 Melena; K55.20 Angiodysplasia of colon without hemorrhage; K64.0 First degree hemorrhoids; K57.30 Diverticulosis of large intestine without perforation or abscess without bleeding; D50.9 Iron deficiency anemia, unspecified; Z86.010 Personal history of colon polyps
CPT/HCPCS: J2704; J7120

== ENCOUNTER 2023-09-28 14:27 | Inpatient (IN) | payer MEDICARE ==
[~2023-09-28] VITALS: Ht 165.1 cm; Wt 65.5 kg
[2023-09-28] VITALS (20 sets, daily range): BP systolic 47–174; BP diastolic 39–85; PULSE 55–69; TEMP 97.5–98.6
[~2023-09-28 14:27] MED LIST changes: -LR 1,000 ML IV SCH; -Ondansetron 4 MG/2 ML VIAL IV PRN
[2023-09-28] MEDS ORDERED: Pantoprazole 40 MG in NS 100 ML IV ONE (14:45)
[2023-09-28] MEDS ORDERED: Pantoprazole 80 MG in NS 100 ML IV ONE (14:45)
[2023-09-28] MEDS ORDERED: NS 500 ML IV ONE (14:45)
[2023-09-28 15:13] LABS: BASO % 0.3 % (0.0-2.0); EOS # 0.2 K/mm3 (0.0-0.7); EOS % 1.4 % (0.0-4.0); GRAN # 9.9 K/mm3 (1.4-6.5); GRAN % 72.9 % (42.2-75.2); LYMPH # 2.8 K/mm3 (1.2-3.4); LYMPH % 20.7 % (20.0-51.0); MEAN CELL VOLUME 85 fl (80.0-100.0); MEAN CORPUSCULAR HGB CONC 30 g/dl (33.0-37.0); MEAN PLATELET VOLUME 9.5 fl (7.4-10.4); MONO # 0.6 K/mm3 (0.1-0.6); MONO % 4.3 % (1.7-9.3); PLATELET COUNT 345 K/mm3 (130-400); RED BLOOD COUNT 2.33 M/mm3 (4.10-5.30)
[2023-09-28 15:19] LABS: HEMATOCRIT 19.7 % (37.0-47.0); HEMOGLOBIN 5.9 g/dl (12.5-16.0); MEAN CORPUSCULAR HEMOGLOBIN 25 pg (27-31)
[2023-09-28 15:23] LABS: INR 1.7 (0.8-3.0); PROTHROMBIN TIME 18.8 SECONDS (9.7-12.8)
[2023-09-28 15:26] LABS: PARTIAL THROMBOPLASTIN TIME 35.7 SECONDS (26.0-37.0)
[2023-09-28 15:28] LABS: ALBUMIN 3.4 gm/dL (3.4-4.8); CALCIUM 9.3 mg/dL (8.4-10.2); CREATININE, serum 1.4 mg/dL (0.57-1.11); MAGNESIUM 2.1 mg/dL (1.6-2.6); POTASSIUM 5.1 mmol/L (3.5-4.5); TOTAL PROTEIN 6.8 gm/dL (6.2-8.1)
[2023-09-28 15:45] LABS: TROPONIN-I 0.1 ng/mL (0.00-0.033)
[2023-09-28 15:53] LABS: BILIRUBIN,TOTAL 0.3 mg/dL (0.2-1.2)
[2023-09-28] MEDS ORDERED: WATER FOR INJECTION STERILE IV ONE (18:00)
[2023-09-28] MEDS ORDERED: PROTHROMBIN COMPLEX HUMAN IV ONE (18:00)
[2023-09-28 18:04] LABS: COLLECTION METHOD CLEAN CATCH
[2023-09-28 18:12] LABS: PH 5.5 (5.0-8.5); URINE APPEARANCE CLEAR (CLEAR/HAZY); URINE BLOOD 1+ (NEGATIVE); URINE COLOR YELLOW (YELLOW); URINE GLUCOSE NEGATIVE (NEGATIVE); URINE KETONE NEGATIVE (NEGATIVE); URINE NITRATE NEGATIVE (NEGATIVE); URINE PROTEIN(semi-quant) NEGATIVE (NEGATIVE); URINE UROBILINOGEN 0.2 E.U/dL (0.2-1.0)
[2023-09-28] MEDS ORDERED: COZAAR 50MG50 MG/TAB PO (19:37)
[2023-09-28] MEDS ORDERED: SYNTHROID 0.0.025 MG PO (19:37)
[2023-09-28] MEDS ORDERED: SYNTHROID0.05 MG/TA PO (19:38)
--- NOTE | 2023-09-28 20:42 | NUR ---
LAB CALLED MIRA ALATORRE AT 20:25 WITH A TROPONIN OF 0.106. RIAZ CLINE APRN NOTIFIED AT 20:30
[2023-09-28] MEDS ORDERED: Albuterol/Ipratropium 3 MG-0.5 MG/3 ML Neb Soln IH PRN (20:45)
[2023-09-28] MEDS ORDERED: NS 1,000 ML IV SCH (21:30)
[2023-09-28] MEDS ORDERED: Melatonin 3 MG TAB PO PRN (23:30)
[2023-09-29] VITALS (16 sets, daily range): BP systolic 128–181; BP diastolic 37–60; PULSE 54–86; TEMP 97.7–98.3
[2023-09-29 03:04] LABS: HEMATOCRIT 22.2 % (37.0-47.0); HEMOGLOBIN 7.3 g/dl (12.5-16.0)
[2023-09-29 03:14] LABS: CREATININE, serum 1.15 mg/dL (0.57-1.11); MAGNESIUM 1.9 mg/dL (1.6-2.6); PHOSPHOROUS 3.5 mg/dL (2.3-4.7); POTASSIUM 4.2 mmol/L (3.5-4.5)
[2023-09-29 07:13] LABS: BASO # 0.1 K/mm3 (0.0-0.2); BASO % 0.5 % (0.0-2.0); EOS # 0.3 K/mm3 (0.0-0.7); EOS % 2.7 % (0.0-4.0); GRAN # 6.7 K/mm3 (1.4-6.5); GRAN % 64.2 % (42.2-75.2); LYMPH # 2.6 K/mm3 (1.2-3.4); LYMPH % 24.4 % (20.0-51.0); MEAN CELL VOLUME 83 fl (80.0-100.0); MEAN CORPUSCULAR HEMOGLOBIN 27 pg (27-31); MEAN CORPUSCULAR HGB CONC 32 g/dl (33.0-37.0); MEAN PLATELET VOLUME 9.5 fl (7.4-10.4); MONO # 0.8 K/mm3 (0.1-0.6); MONO % 7.7 % (1.7-9.3); PLATELET COUNT 250 K/mm3 (130-400); RED BLOOD COUNT 2.73 M/mm3 (4.10-5.30); REDCELL DISTRIBUTION WIDTH-CV 16.4 % (11.5-14.5)
--- NOTE | 2023-09-29 08:15 | NUR ---
Pt A&O x4 upon morning shift assessment. Oxygen of 99 on 2L O2. Apical pulse of 53. INT to both R and L forearm w/ no signs of redness or irritation. Applied SCDs to BLE. Pt resting in bed with HOB elevated. Call light in reach, no complaints at this time.
[2023-09-29] MEDS ORDERED: Citalopram 20 MG TAB PO SCH (09:00)
--- NOTE | 2023-09-29 09:05 | NUR ---
Patient alert and oriented x4. Shift assessment complete, denies pain at this time. No stools this morning or overnight. NPO at this time until GI consult complete, update provided to GI doctor over the phone. Patient ambulating SBA to bathroom, gait steady with no assistive devices. Call light within reach, all needs met at this time.
[2023-09-29] MEDS ORDERED: Cetirizine 10 MG TAB PO SCH (11:20)
[2023-09-29] MEDS ORDERED: Cholecalciferol (Vit D3) 1000 Units TAB PO SCH (11:20)
[2023-09-29] MEDS ORDERED: Montelukast 10 MG TAB PO SCH (11:20)
[2023-09-29] MEDS ORDERED: MULTAQ400 MG PO (11:27)
[2023-09-29] MEDS ORDERED: COREG 6.256.25 MG/TA PO (11:31)
[2023-09-29] MEDS ORDERED: VITAMINC1000TA PO (12:39)
--- NOTE | 2023-09-29 16:46 | NUR ---
cushion worker met with patient to discuss discharge planning. Patient lives in [place] by herself. PCP is Dr. Bosch, Pharmacy is [facility] in [place]. Best point of contact is Mireya (daughter) [phone]. No issues affording medications. DPOA-HC is Mireya, does not have a copy at the hospital, requesting from PCP. Patient would like a walker if recommended at discharge as she has one from her late but it is too large for her. Patient reports to be independent with ADLS normally and is able to transport to and from appointments. Patient would like to return home at time of discharge. Patient reports concerns with housekeeping. SW provided the private duty caregivers for chore services from the [facility]. Patient is interested in home health services for PT/OT/Nursing. SW provided the Medicare.gov list of options for home health. SW will follow up. Discharge plan: Home with possibly home health
--- NOTE | 2023-09-29 18:55 | NUR ---
Patient remains stable, ambulates frequently around room. Denies pain or discomfort. Tolerating advanced diet from clear liquids to heart healthy well. Call light within reach, all needs met at this time.
--- NOTE | 2023-09-29 22:00 | NUR ---
Patient resting in bed. Denies any pain or needs at this time. Assessment complete. IV in right forearm and left wrist flush easily with no complications. Call light and personal items in reach. Bed in low position and bed alarm on.
[2023-09-30] VITALS (9 sets, daily range): BP systolic 162–182; BP diastolic 51–72; PULSE 47–55; TEMP 98.1–98.2
--- NOTE | 2023-09-30 02:00 | NUR ---
Hospitalist Hammad called for patients blood pressure of 181/60 and that was the lowest on we could get. Patient has been hypertensive but not that high. Hospitalist notified.
--- NOTE | 2023-09-30 06:30 | NUR ---
Patient resting in bed. Denies any pain or needs at this time. No changes over night. Call light and personal items in reach. Bed in low position and bed alarm on.
[2023-09-30 08:45] LABS: BASO % 0.3 % (0.0-2.0); EOS # 0.5 K/mm3 (0.0-0.7); EOS % 5.3 % (0.0-4.0); GRAN # 6.7 K/mm3 (1.4-6.5); GRAN % 70.9 % (42.2-75.2); LYMPH # 1.5 K/mm3 (1.2-3.4); LYMPH % 16.3 % (20.0-51.0); MEAN CELL VOLUME 86 fl (80.0-100.0); MEAN CORPUSCULAR HGB CONC 31 g/dl (33.0-37.0); MEAN PLATELET VOLUME 9.4 fl (7.4-10.4); MONO # 0.7 K/mm3 (0.1-0.6); MONO % 6.9 % (1.7-9.3); PLATELET COUNT 245 K/mm3 (130-400); REDCELL DISTRIBUTION WIDTH-CV 16.3 % (11.5-14.5)
[2023-09-30 08:48] LABS: HEMOGLOBIN 7.4 g/dl (12.5-16.0); MEAN CORPUSCULAR HEMOGLOBIN 26 pg (27-31)
[2023-09-30] MEDS ORDERED: NIFEdipine XL 60 MG TAB PO SCH (09:00)
[2023-09-30] MEDS ORDERED: NIFEdipine XL 30 MG TAB PO SCH (09:00)
[2023-09-30] MEDS ORDERED: Carvedilol 6.25 MG TAB PO SCH (09:00)
[2023-09-30] MEDS ORDERED: Losartan 50 MG TAB PO SCH (09:00)
[2023-09-30 09:01] LABS: CALCIUM 8.4 mg/dL (8.4-10.2); CREATININE, serum 0.93 mg/dL (0.57-1.11); POTASSIUM 4.1 mEq/L (3.5-4.5)
[2023-09-30] MEDS ORDERED: PROTONIX 40MG T40 MG PO (09:51)
--- NOTE | 2023-09-30 10:22 | NUR ---
Pt awake, alert and oriented. Denies pain, shortness of breath, or dizziness. Bed in lowest position with call light within reach. Call light within reach, bed in lowest position.
--- NOTE | 2023-09-30 16:39 | NUR ---
Discharged to home, educated on discharge instructions and medications. Pt verbalized understanding. All belongings sent home with patient. IV and monitor technician removed prior to discharge. Assisted to car by nursing staff.
== END 2023-09-30 16:40 | disposition home or self-care (01) | DRG 378 ==
LOC: COL.ER 14:27 → MEDICAL 18:22
PROVIDERS: Internal Medicine; Nurse Practitioner Family; ADMIT Internal Medicine
PROC: 30233N1 Transfusion of Nonautologous Red Blood Cells into Peripheral Vein, Percutaneous Approach (ICD-10-PCS; principal; 2023-09-28)
DX: K31.811 Angiodysplasia of stomach and duodenum with bleeding (principal); D62 Acute posthemorrhagic anemia; I50.32 Chronic diastolic (congestive) heart failure; I13.0 Hypertensive heart and chronic kidney disease with heart failure and stage 1 through stage 4 chronic kidney disease, or unspecified chronic kidney disease; J96.11 Chronic respiratory failure with hypoxia; I24.89 Other forms of acute ischemic heart disease; N17.9 Acute kidney failure, unspecified; E78.5 Hyperlipidemia, unspecified; F32.A Depression, unspecified; K21.9 Gastro-esophageal reflux disease without esophagitis; I48.0 Paroxysmal atrial fibrillation; F41.9 Anxiety disorder, unspecified; E03.9 Hypothyroidism, unspecified; I27.20 Pulmonary hypertension, unspecified; K57.30 Diverticulosis of large intestine without perforation or abscess without bleeding; J45.909 Unspecified asthma, uncomplicated; K27.4 Chronic or unspecified peptic ulcer, site unspecified, with hemorrhage; M19.90 Unspecified osteoarthritis, unspecified site; I08.2 Rheumatic disorders of both aortic and tricuspid valves; H26.9 Unspecified cataract; I25.10 Atherosclerotic heart disease of native coronary artery without angina pectoris; N18.30 Chronic kidney disease, stage 3 unspecified; Z88.0 Allergy status to penicillin; Z88.8 Allergy status to other drugs, medicaments and biological substances; Z95.2 Presence of prosthetic heart valve; Z86.16 Personal history of COVID-19; Z87.01 Personal history of pneumonia (recurrent); Z79.899 Other long term (current) drug therapy; Z79.82 Long term (current) use of aspirin; Z79.01 Long term (current) use of anticoagulants; Z99.81 Dependence on supplemental oxygen; Z79.890 Hormone replacement therapy; Z95.818 Presence of other cardiac implants and grafts; Z23 Encounter for immunization
CPT/HCPCS: C9113; J0612; J7040; J7168; P9016

== ENCOUNTER 2023-10-13 11:32 | Inpatient (IN) | payer MEDICARE ==
[2023-10-13] VITALS (7 sets, daily range): BP systolic 126–147; BP diastolic 45–76; PULSE 58–65; TEMP 97.7–98.7
[~2023-10-13] VITALS: Ht 165.1 cm; Wt 67.7 kg
[~2023-10-13 11:32] MED LIST changes: +COZAAR 50MG50 MG/TAB PO; +SYNTHROID 0.0.025 MG PO; +SYNTHROID0.05 MG/TA PO; +VITAMINC1000TA PO
[2023-10-13 12:22] LABS: BASO % 0.4 % (0.0-2.0); EOS # 0.4 K/mm3 (0.0-0.7); EOS % 4.4 % (0.0-4.0); GRAN % 72.1 % (42.2-75.2); LYMPH # 1.6 K/mm3 (1.2-3.4); MEAN CELL VOLUME 86 fl (80.0-100.0); MEAN CORPUSCULAR HGB CONC 30 g/dl (33.0-37.0); MEAN PLATELET VOLUME 9.3 fl (7.4-10.4); MONO # 0.7 K/mm3 (0.1-0.6); MONO % 6.9 % (1.7-9.3); PLATELET COUNT 269 K/mm3 (130-400); RED BLOOD COUNT 2.99 M/mm3 (4.10-5.30); REDCELL DISTRIBUTION WIDTH-CV 16.3 % (11.5-14.5)
[2023-10-13 12:26] LABS: HEMATOCRIT 25.6 % (37.0-47.0); HEMOGLOBIN 7.7 g/dl (12.5-16.0); MEAN CORPUSCULAR HEMOGLOBIN 26 pg (27-31)
[2023-10-13 12:39] LABS: ALBUMIN 3.2 g/dL (3.4-4.8); BILIRUBIN,TOTAL 0.5 mg/dL (0.2-1.2); CALCIUM 8.6 mg/dL (8.4-10.2); CREATININE, serum 1.65 mg/dL (0.57-1.11); POTASSIUM 5.7 mEq/L (3.5-4.5); TOTAL PROTEIN 6.7 g/dl (6.2-8.1)
[2023-10-13 12:56] LABS: TROPONIN-I 0.051 ng/mL (0.00-0.033)
[2023-10-13] MEDS ORDERED: Furosemide 40 MG/4 ML VIAL IV ONE (13:30)
[2023-10-13] MEDS ORDERED: *Potassium Replacement Protocol MC SCH (14:45)
[2023-10-13] MEDS ORDERED: Patiromer 8.4 G Oral Susp **** subs to Sodium Zirconium Cyclosilicate 10 G Oral Susp PO ONE (16:00)
[2023-10-13] MEDS ORDERED: Losartan 50 MG TAB PO SCH (16:02)
[2023-10-13] MEDS ORDERED: NIFEdipine XL 60 MG TAB PO SCH (16:03)
[2023-10-13] MEDS ORDERED: Sodium Zirconium Cyclosilicate for Oral Susp 10 GM PACKET PO ONE (16:30)
[2023-10-13] MEDS ORDERED: Carvedilol 6.25 MG TAB PO SCH (17:00)
[2023-10-13] MEDS ORDERED: NIFEdipine XL 30 MG TAB PO SCH (21:00)
--- NOTE | 2023-10-13 21:43 | NUR ---
patient lying in bed, alert and oriented x4. pt denies chest pain and reports shortness of breath with exertion. pt reports burning in nose from oxygen, humidified oxygen applied and o2 reduced from 6L sats at 97% to 4L sats at 94%. IV in RAC is patent , site is clean dry and intact. nonpitting edema in BLE, small scattered bruising on extremities noted. pt uses call light effectively for help to bathroom/getting up, ambulates with steady gait. pt has no further needs, quesitons, or concerns at this time. call light within reach, will continue to monitor.
[2023-10-14] VITALS (12 sets, daily range): BP systolic 117–148; BP diastolic 53–64; PULSE 51–76; TEMP 97.9–98.5
[2023-10-14 06:23] LABS: BASO # 0.1 K/mm3 (0.0-0.2); BASO % 0.5 % (0.0-2.0); EOS # 0.4 K/mm3 (0.0-0.7); EOS % 4.6 % (0.0-4.0); GRAN # 6.7 K/mm3 (1.4-6.5); GRAN % 70.5 % (42.2-75.2); LYMPH # 1.7 K/mm3 (1.2-3.4); LYMPH % 17.5 % (20.0-51.0); MEAN CORPUSCULAR HGB CONC 32 g/dl (33.0-37.0); MEAN PLATELET VOLUME 9.6 fl (7.4-10.4); MONO # 0.6 K/mm3 (0.1-0.6); MONO % 6.6 % (1.7-9.3); PLATELET COUNT 245 K/mm3 (130-400); RED BLOOD COUNT 2.88 M/mm3 (4.10-5.30); REDCELL DISTRIBUTION WIDTH-CV 16.1 % (11.5-14.5)
[2023-10-14 06:24] LABS: HEMATOCRIT 23.3 % (37.0-47.0); HEMOGLOBIN 7.5 g/dl (12.5-16.0); MEAN CORPUSCULAR HEMOGLOBIN 26 pg (27-31)
[2023-10-14 06:25] LABS: MEAN CELL VOLUME 81 fl (80.0-100.0)
[2023-10-14 06:46] LABS: ALBUMIN 2.7 g/dL (3.4-4.8); CALCIUM 8.2 mg/dL (8.4-10.2); CREATININE, serum 1.45 mg/dL (0.57-1.11); MAGNESIUM 1.9 mg/dL (1.6-2.6); PHOSPHOROUS 3.8 mg/dL (2.3-4.7); POTASSIUM 4.5 mEq/L (3.5-4.5)
[2023-10-14] MEDS ORDERED: Montelukast 10 MG TAB PO SCH (09:00)
[2023-10-14] MEDS ORDERED: Furosemide 40 MG/4 ML VIAL IV SCH (09:00)
[2023-10-14] MEDS ORDERED: Citalopram 20 MG TAB PO SCH (09:00)
--- NOTE | 2023-10-14 09:29 | NUR ---
Initial visit; Patient thanked Neonatal Surgeon for looking in on her and offering God's blessings and to keep her in Neonatal Surgeon's prayers.
--- NOTE | 2023-10-14 09:55 | NUR ---
assessnebt complete. telementry on HR regular. diminished lung sounds bilateral lower bases. SPO2 91 on 6L O2 per nasal cannula . INT RAC intact. no c/o of pain at this time.
[2023-10-14] MEDS ORDERED: Carvedilol 6.25 MG TAB PO ONE (10:00)
--- NOTE | 2023-10-14 11:03 | NUR ---
mill worker met with pt to discuss discharge planning. She reports to live alone in [place]. She sees Dr. Banda and obtains medications from [facility] with no difficulties. She reports to be independent with ADLS and uses oxygen through [facility] almost 24 hours a day. She reports her daughter/DPOA-HC as Mireya [phone]. YANNI verified this on file. PT/OT Pending Discharge Plan: home, pending evals
--- NOTE | 2023-10-14 11:34 | NUR ---
Call placed to cofirm with cardiology dose of coreg while HR in upper 50's. Cardiology confirmed order. To be administered.
--- NOTE | 2023-10-14 12:58 | NUR ---
PT was given Coreg per cardiology order. PT apical pulse was 56 prior to administration. RN was notified and called cardiology to confirm administration. PT denies feeling lightheaded, nauseous, or headache at this time. Pulse is currently at 50 bpm. Will confinue to monitor.
[2023-10-14] MEDS ORDERED: Ferrous Sulfate 325 MG TAB PO ONE (15:30)
[2023-10-14] MEDS ORDERED: Carvedilol 6.25 MG TAB PO SCH (17:00)
--- NOTE | 2023-10-14 20:56 | NUR ---
Shift assessment complete. Patient is laying in bed reading magazines. Denies any pain at this time. Call light is within reach and bed is locked and in low position.
[2023-10-15] VITALS (19 sets, daily range): BP systolic 101–155; BP diastolic 39–71; PULSE 51–62; TEMP 97.6–99.8
--- NOTE | 2023-10-15 07:15 | NUR ---
PATIENT RESTING QUIETLY IN BED. BP 133/30; REPEATED AT 0745; RESULT 130/67. HR AND RHYTHM REGULAR. RR 24; PT SPO2 95% ON 4LPM VIA NASAL CANULA. PATIENT STATES THAT UNPRODUCTIVE COUGH STARTED THIS AM. EXPIRATORY WHEEZES AUSCULTATED IN UPPER BILATERAL LOBES. OTHER LOBES CLEAR TO AUSCULTATION. PATIENT DENIES SHORTNESS OF AIR. PATIENT DENIES PAIN AT THIS TIME AND DENIES ANY OTHER NEEDS AT THIS TIME. PATIENT ORDERED BREAKFAST. CALL LIGHT WITHIN REACH.
[2023-10-15 07:49] LABS: BASO % 0.5 % (0.0-2.0); EOS # 0.5 K/mm3 (0.0-0.7); EOS % 6.7 % (0.0-4.0); GRAN # 4.8 K/mm3 (1.4-6.5); GRAN % 64.2 % (42.2-75.2); LYMPH # 1.6 K/mm3 (1.2-3.4); MEAN CELL VOLUME 84 fl (80.0-100.0); MEAN CORPUSCULAR HGB CONC 31 g/dl (33.0-37.0); MEAN PLATELET VOLUME 9.7 fl (7.4-10.4); MONO # 0.5 K/mm3 (0.1-0.6); MONO % 7.3 % (1.7-9.3); PLATELET COUNT 273 K/mm3 (130-400); RED BLOOD COUNT 2.78 M/mm3 (4.10-5.30); REDCELL DISTRIBUTION WIDTH-CV 15.9 % (11.5-14.5)
[2023-10-15 07:51] LABS: HEMATOCRIT 23.3 % (37.0-47.0); HEMOGLOBIN 7.2 g/dl (12.5-16.0); MEAN CORPUSCULAR HEMOGLOBIN 26 pg (27-31)
[2023-10-15 08:10] LABS: ALBUMIN 2.7 g/dL (3.4-4.8); CALCIUM 8.5 mg/dL (8.4-10.2); CREATININE, serum 1.59 mg/dL (0.57-1.11); MAGNESIUM 1.8 mg/dL (1.6-2.6); PHOSPHOROUS 4.2 mg/dL (2.3-4.7); POTASSIUM 4.2 mEq/L (3.5-4.5)
--- NOTE | 2023-10-15 09:45 | NUR ---
Patient alert and oriented x4. Denies pain or discomfort. Complains of cough, lung sounds noted to have crackels to bilateral bases. Shortness of breath noted upon exertion. Stable on 4L, baseline is 2L. Orders received for thoracentesis today. Consent obtained from patient. Activity stable with no assistive devices. Appetite adequate, ate 90% of breakfast. Morning medications administered by nursing program chair and instructor. Call light within reach, all needs met at this time.
[2023-10-15 09:48] LABS: INR 1.1 (0.8-3.0); PROTHROMBIN TIME 11.8 SECONDS (9.7-12.8)
--- NOTE | 2023-10-15 13:59 | NUR ---
Patient off unit at this time for thoracentesis procedure.
--- NOTE | 2023-10-15 16:20 | NUR ---
Pt sitting up in chair. Blood transfusion started. s/s of blood transfusion reactions discussed with patient- pt verbalizes understanding. See flowsheet for details. Family sitting at bedside.
--- NOTE | 2023-10-15 16:35 | NUR ---
This nurse remained in room for the first 15 minutes of PRBC transfusion. Pt denies s/s transfusion reaction. Transfusion increased to 120ml/hr. Continues to sit up in chair. Visitors at bedside.
[2023-10-15 18:01] LABS: PLEURAL FLUID RBC 13000 /mm3 (0-0); PLEURAL FLUID WBC 882 /mm3
--- NOTE | 2023-10-15 18:33 | NUR ---
Patient sitting up in recliner and eating dinner, continues to tolerate blood transfusion well. IV site is intact, no signs of infiltration noted at this time. Blood infusing at 120ml/hr. Denies pain or discomfort, just states she feels cold. Warm blanket provided. Call light within reach, all needs met at this time.
[2023-10-15 18:43] LABS: PLEURAL FLUID COLOR PINK
[2023-10-15 18:45] LABS: PLEURAL FLUID APPEARANCE CLOUDY
--- NOTE | 2023-10-15 19:15 | NUR ---
Assessment complete. A&Ox3. Sitting up in chair-blood transfusion infusing to right AC 20g without difficulty. VS stable. Noted to have coarse crackles to bilat upper lung emery/diminished bases. Currently on 4L/NC with adequate O2 saturation. Tele reporting SB. Bandaid to left upper back CDI. Plan of care discussed for this shift to include meds/transfusion/lab draw/calling for questions/concerns verbalies understanding. Call light in reach. Will monitor.
--- NOTE | 2023-10-15 19:33 | NUR ---
Transfusion complete. No s/s of reaction noted.
[2023-10-15 22:48] LABS: HEMATOCRIT 25.9 % (37.0-47.0); HEMOGLOBIN 8.4 g/dl (12.5-16.0)
--- NOTE | 2023-10-15 23:20 | NUR ---
Patient called concerned BP is low. Currently 119/48. Discussed lasix dosing. Also discussed MAP of 62. Verbalizes understanding. States she would like to be "hooked up to a cuff and monitored closely." Abena on with 30min intervals. Denies any S/S of hypotension. WIll monitor.
[2023-10-16] VITALS (8 sets, daily range): BP systolic 119–138; BP diastolic 42–61; PULSE 61–65; TEMP 98.4–98.7
--- NOTE | 2023-10-16 01:02 | NUR ---
Blood pressure continues to stable 110-120/52-68. DIscussd with patient. Still would like to continue to have cuff on. On at this time for reassurance. Will continue to monitor.
--- NOTE | 2023-10-16 05:45 | NUR ---
Patient rested off and on this shift. Received one unit of blood that finished at approx 1930. Did have one episode of lower blood pressure that concerned patient but currently is WNL. TELE reporting SB. O2@4L/NC. VS stable. Right AC INT flushes without difficulty-no s/s of infiltration noted. Bandaid to left side of back from [facility]. Currently resting with eyes closed. No s/s of pain or discomfort noted. Will monitor.
--- NOTE | 2023-10-16 07:10 | NUR ---
PATIENT RESTING QUIETLY IN BED. VS WNL; DENIES PAIN AT THIS TIME. PATIENT SPO2 98% ON 3LPM VIA NASAL CANNULA; REPORTS NO SHORTNESS OF BREATH OR COUGH. BANDAID DRESSING ON LEFT MID-BACK CLEAN, DRY, INTACT. PATIENT ORDERING BREAKFAST; CALL LIGHT WITHIN REACH.
--- NOTE | 2023-10-16 07:40 | NUR ---
REPORTED TO MIRA SHAH THAT PATIENT SPO2 98% ON 3LPM VIA NASAL CANNULA. INSTRUCTED TO DECREASE O2 TO 2LPM AND RECHECK IN 30 MIN. PATIENT ADVISED TO ALERT NURSE VIA CALL LIGHT IF EXPERINCING SHORTNESS OF BREATH.
[2023-10-16 07:58] LABS: BASO % 0.2 % (0.0-2.0); EOS # 0.4 K/mm3 (0.0-0.7); EOS % 5.2 % (0.0-4.0); GRAN # 5.3 K/mm3 (1.4-6.5); GRAN % 65.8 % (42.2-75.2); HEMATOCRIT 25.2 % (37.0-47.0); HEMOGLOBIN 8.3 g/dl (12.5-16.0); LYMPH # 1.7 K/mm3 (1.2-3.4); LYMPH % 20.4 % (20.0-51.0); MEAN CELL VOLUME 80 fl (80.0-100.0); MEAN CORPUSCULAR HEMOGLOBIN 26 pg (27-31); MEAN CORPUSCULAR HGB CONC 33 g/dl (33.0-37.0); MEAN PLATELET VOLUME 9.7 fl (7.4-10.4); MONO # 0.7 K/mm3 (0.1-0.6); PLATELET COUNT 265 K/mm3 (130-400); RED BLOOD COUNT 3.16 M/mm3 (4.10-5.30); REDCELL DISTRIBUTION WIDTH-CV 15.7 % (11.5-14.5)
[2023-10-16 08:33] LABS: ALBUMIN 2.8 g/dL (3.4-4.8); CALCIUM 8.4 mg/dL (8.4-10.2); CREATININE, serum 1.65 mg/dL (0.57-1.11); MAGNESIUM 1.7 mg/dL (1.6-2.6); PHOSPHOROUS 4.4 mg/dL (2.3-4.7)
--- NOTE | 2023-10-16 11:43 | NUR ---
Social work student met with patient to review important message from medicare form. Patient understood and signed document. Social work student gave patient the original and placed a copy in patient's chart. Social work student asked patient if she would like Home Health. Patient declined. Social work student informed patient that she can set up Home Health through her PCP if changes mind. Discharge plan:Home
--- NOTE | 2023-10-16 12:51 | NUR ---
PATIENT SITTING UP IN RECLINER WITH FAMILY AT BEDSIDE. PATIENT STATES SHE FEELS READY FOR DISCHARGE AND WAS UNDER THE IMPRESSION SHE WOULD GO TODAY. THIS RN CONTACTED DR. MURILLO AND HE STATES HE WILL PLACE ORDERS SOON. WILL AWAIT ORDERS AT THIS TIME.
[2023-10-16] MEDS ORDERED: COREG12.5 MG PO (13:15)
[2023-10-16] MEDS ORDERED: LASIX 40MG TABL40 MG PO (13:16)
--- NOTE | 2023-10-16 14:21 | NUR ---
IV REMOVED, TELEMETRY REMOVED. DISCHARGE INSTRUCTIONS REVIEWED, FAMILY AT BEDSIDE, ALL QUESTIONS ANSWERED. PATIENT ESCORTED OUT OF FACILITY BY VIA [facility] STAFF.
== END 2023-10-16 14:22 | disposition home or self-care (01) | DRG 291 ==
LOC: COL.ER 11:32 → MEDICAL 13:33
PROVIDERS: Physician Assistant; ADMIT Internal Medicine
PROC: 0W9B3ZX Drainage of Left Pleural Cavity, Percutaneous Approach, Diagnostic (ICD-10-PCS; principal; 2023-10-15)
PROC: 30233N1 Transfusion of Nonautologous Red Blood Cells into Peripheral Vein, Percutaneous Approach (ICD-10-PCS; 2023-10-15)
DX: I13.0 Hypertensive heart and chronic kidney disease with heart failure and stage 1 through stage 4 chronic kidney disease, or unspecified chronic kidney disease (principal); I50.33 Acute on chronic diastolic (congestive) heart failure; J96.21 Acute and chronic respiratory failure with hypoxia; I31.39 Other pericardial effusion (noninflammatory); E78.5 Hyperlipidemia, unspecified; F32.A Depression, unspecified; I48.91 Unspecified atrial fibrillation; N18.30 Chronic kidney disease, stage 3 unspecified; I25.10 Atherosclerotic heart disease of native coronary artery without angina pectoris; Z20.822 Contact with and (suspected) exposure to COVID-19; D64.9 Anemia, unspecified; J45.909 Unspecified asthma, uncomplicated; K21.9 Gastro-esophageal reflux disease without esophagitis; M19.90 Unspecified osteoarthritis, unspecified site; E87.5 Hyperkalemia; E03.9 Hypothyroidism, unspecified; H26.9 Unspecified cataract; I08.3 Combined rheumatic disorders of mitral, aortic and tricuspid valves; I27.20 Pulmonary hypertension, unspecified; Z99.81 Dependence on supplemental oxygen; Z95.2 Presence of prosthetic heart valve; Z88.0 Allergy status to penicillin; Z88.8 Allergy status to other drugs, medicaments and biological substances; Z86.16 Personal history of COVID-19; Z87.01 Personal history of pneumonia (recurrent); Z95.818 Presence of other cardiac implants and grafts; Z79.899 Other long term (current) drug therapy; Z79.890 Hormone replacement therapy; Z23 Encounter for immunization
CPT/HCPCS: A9270; J1940; P9016

== ENCOUNTER 2024-04-12 10:50 | Inpatient (IN) | payer MEDICARE ==
[~2024-04-12] VITALS: Ht 165.1 cm; Wt 61.6 kg
[~2024-04-12 10:50] MED LIST changes: +COREG12.5 MG PO
[2024-04-12 11:14] LABS: BASO % 0.3 % (0.0-2.0); EOS # 0.1 K/mm3 (0.0-0.7); EOS % 1.4 % (0.0-4.0); GRAN # 7.8 K/mm3 (1.4-6.5); GRAN % 77.3 % (42.2-75.2); LYMPH # 1.3 K/mm3 (1.2-3.4); MEAN CELL VOLUME 84 fl (80.0-100.0); MEAN CORPUSCULAR HGB CONC 32 g/dl (33.0-37.0); MONO # 0.8 K/mm3 (0.1-0.6); MONO % 7.7 % (1.7-9.3); PLATELET COUNT 263 K/mm3 (130-400); RED BLOOD COUNT 3.66 M/mm3 (4.10-5.30); REDCELL DISTRIBUTION WIDTH-CV 14.4 % (11.5-14.5)
[2024-04-12 11:15] LABS: HEMATOCRIT 30.7 % (37.0-47.0); HEMOGLOBIN 9.9 g/dl (12.5-16.0); MEAN CORPUSCULAR HEMOGLOBIN 27 pg (27-31)
[2024-04-12 11:32] LABS: ALBUMIN 2.8 g/dL (3.4-4.8); BILIRUBIN,TOTAL 0.7 mg/dL (0.2-1.2); CALCIUM 9.7 mg/dL (8.4-10.2); CREATININE, serum 1.7 mg/dL (0.57-1.11); POTASSIUM 5.3 mEq/L (3.5-4.5); TOTAL PROTEIN 7.3 g/dl (6.2-8.1)
[2024-04-12 11:44] LABS: TROPONIN-I 0.146 ng/mL (0.00-0.033)
[2024-04-12] MEDS ORDERED: NS 250 ML IV SCH (11:45)
[2024-04-12] MEDS ORDERED: FERROUS SU325 MG/TAB PO (12:00)
[2024-04-12] MEDS ORDERED: DESYREL 50MG50 MG PO (12:09)
[2024-04-12] MEDS ORDERED: MIRALAX PA17 GM/Dose PO (12:10)
[2024-04-12] MEDS ORDERED: Lidocaine PF 2% (20 MG/ML) 5 ML VIAL ONE (13:13)
[2024-04-12] MEDS ORDERED: Hydrocortisone 1% Cream 30 GM TUBE TP PRN (14:15)
--- NOTE | 2024-04-12 14:23 | NUR ---
Mirna is awake and alert after cardioversion with Dr. Rosas. sinus aftab with occasional pacs on monitor. report given to Lashay MEYERS in the ER
[2024-04-12 15:03] VITALS: BP 119/56; PULSE 61; TEMP 98.1
[2024-04-12 15:24] VITALS: BP_SYST 119
[2024-04-12] MEDS ORDERED: Docusate Sodium 100 MG CAP PO PRN (16:30)
[2024-04-12] MEDS ORDERED: Acetaminophen 325 MG TAB PO PRN (16:30)
[2024-04-12] MEDS ORDERED: Ondansetron 4 MG/2 ML VIAL IV PRN (16:30)
[2024-04-12] MEDS ORDERED: Polyethylene Glycol 3350 17 GM PDS PO PRN (16:30)
[2024-04-12] MEDS ORDERED: Furosemide 40 MG/4 ML VIAL IV SCH (17:00)
[2024-04-12 17:25] VITALS: BP_SYST 119
--- NOTE | 2024-04-12 17:58 | NUR ---
Critical troponin level called to Dr. Lawrence. No new orders rec'd.
--- NOTE | 2024-04-12 19:00 | NUR ---
Pt arrived to room 316 at approximately 1500 from the ED. A/O x4. PUYALLUP. Patient on oxygen 3L/NC. SOA with exertion noted. x1 assist to BR. Has denied pain or needs.
[2024-04-12 19:29] VITALS: BP 104/40; PULSE 60; TEMP 98.4
[2024-04-12] MEDS ORDERED: Atorvastatin 80 MG TAB PO SCH (21:00)
[2024-04-12] MEDS ORDERED: Cyanocobalamin (Vit B-12) 1,000 MCG TAB PO SCH (21:00)
[2024-04-12 21:28] VITALS: BP_SYST 104
--- NOTE | 2024-04-12 23:06 | NUR ---
Patient lying in bed, alert and oriented x4. denies cheset and reports shortness of breath on exertion. repositioned in bed. IV in LAC is patent, site CDI. per pt request x4 side rails up, pt education provided. fall precautions in place, call light within reach. pt has no further needs, questions or concerns at this time
[2024-04-12 23:40] VITALS: BP 126/63; PULSE 57; TEMP 99.4
[2024-04-13] VITALS (13 sets, daily range): BP systolic 126–178; BP diastolic 42–71; PULSE 49–56; TEMP 97.2–98.2
[2024-04-13 07:08] LABS: BASO % 0.2 % (0.0-2.0); EOS # 0.4 K/mm3 (0.0-0.7); EOS % 4.7 % (0.0-4.0); GRAN # 5.8 K/mm3 (1.4-6.5); GRAN % 70.6 % (42.2-75.2); LYMPH # 1.3 K/mm3 (1.2-3.4); LYMPH % 16.2 % (20.0-51.0); MEAN CELL VOLUME 84 fl (80.0-100.0); MEAN CORPUSCULAR HGB CONC 32 g/dl (33.0-37.0); MEAN PLATELET VOLUME 10.2 fl (7.4-10.4); MONO # 0.7 K/mm3 (0.1-0.6); MONO % 8.1 % (1.7-9.3); PLATELET COUNT 265 K/mm3 (130-400); RED BLOOD COUNT 3.42 M/mm3 (4.10-5.30); REDCELL DISTRIBUTION WIDTH-CV 14.3 % (11.5-14.5)
[2024-04-13 07:09] LABS: CALCIUM 9.1 mg/dL (8.4-10.2); CREATININE, serum 1.57 mg/dL (0.57-1.11); POTASSIUM 4.7 mEq/L (3.5-4.5)
[2024-04-13 07:11] LABS: HEMATOCRIT 28.6 % (37.0-47.0); HEMOGLOBIN 9.1 g/dl (12.5-16.0); MEAN CORPUSCULAR HEMOGLOBIN 27 pg (27-31)
--- NOTE | 2024-04-13 08:13 | NUR ---
Patient's SpO2 88% on 6L/oxymask. SpO2 increased to 90% on 8L/oxymask. Radha in Respiratory Therapy notified.
--- NOTE | 2024-04-13 08:14 | NUR ---
SpO2 90-91% on 8L high flow NC. Pt reports that she feels like she has phlegm in the back of her throat. SOA noted at rest.
[2024-04-13] MEDS ORDERED: Furosemide 100 MG/10 ML VIAL IV ONE ×2 (08:30→17:45)
--- NOTE | 2024-04-13 08:50 | NUR ---
Patient is A&0x4 and sitting at the edge of the bed eating breakfast. Patient states 8/10 pain in her right shoulder. Tylenol given for pain. pt tolerated well. L AC 20g IV, flushes and gives blood return with no issue. Patient educated to call nurse when wanting to get back into bed and verbalized understanding. Bed lowered and lock, call lee within reach. 8L high flow NC for present.
[2024-04-13] MEDS ORDERED: Montelukast 10 MG TAB PO SCH (09:00)
[2024-04-13] MEDS ORDERED: Calcium Carbonate 500 MG TAB PO SCH (09:00)
[2024-04-13] MEDS ORDERED: Cetirizine 10 MG TAB PO SCH (09:00)
[2024-04-13] MEDS ORDERED: Influenza Virus Vaccine, Hi-Dose Triv '24-25 (65 YR+) 0.5 ML SYRINGE IM SCH (09:00)
[2024-04-13] MEDS ORDERED: Citalopram 20 MG TAB PO SCH (09:00)
[2024-04-13] MEDS ORDERED: Ferrous Sulfate 325 MG TAB PO SCH (09:00)
[2024-04-13] MEDS ORDERED: oxyCODONE 5 MG TAB PO PRN (11:30)
--- NOTE | 2024-04-13 14:00 | NUR ---
Patient reports nausea. Zofran 4mg IV push given. Patient tolerated well. Patient transported via wheelchair to MRI. Paperwork verified.
--- NOTE | 2024-04-13 14:26 | NUR ---
Injection Molding Engineer met with patient to discuss discharge planning. Patient lives in [place] at the [facility]) and sees Dr. Bosch for primary care. Patient has medications delivered to her home by [facility] and has a wheelchair, walker, and cane available at home. Patient does not drive and relies volunteers from the [facility] for rides to her appointments. Patient also reported she has Meals on Wheels. Patient believes she has some in home services, but cannot remember the agency. Patient has DPOA-HC in EMR designating her daughter, Mireya (ph#[phone]) and grandson, Vishnu. YANNI followed up after intake to discuss PT/OT recommendations. Patient is interested in SNF so YANNI provided Medicare.gov list of SNF options. Patient selected [facility] as she has friends there. YANNI contacted Rashid and sent referral. Rashid advised he could tentatively accept and would like to continue to receive updates. YANNI also contacted patient's daughter, Mireya to provide the above update. Discharge Plan: [facility]
--- NOTE | 2024-04-13 16:14 | NUR ---
Wad Compressor Operator Adjuster [facility] Ariadna (ph#[phone]) about discharge planning. Ariadna advised she was just approved recently for the [employer] Waiver.
--- NOTE | 2024-04-13 19:57 | NUR ---
patient lying in bed, alert and oriented x4. denies chest pain and reports shortness of breath during exertion and 3/10 pain in right shoulder. per request tylenol given. during med pass, HOB elevated to 40 degrees, pt tried to swallow to many pills at one time and spit out sotalol and vitamin b-12 whole, meds wasted and replaced. pt took meds one at a time with water and no additional complications.pt ambulate x1 assist to bedside commode and back in bed. pt education provide concerning x4 side rail restraint, per pt request and verbal understanding x4 side rails up for comfort. fall precautions in place, call light within reach. pt has no further needs, question sor conccerns at this time.
[2024-04-13] MEDS ORDERED: hydrALAZINE 20 MG/ML 1 ML VIAL IV PRN (23:45)
[2024-04-14] VITALS (16 sets, daily range): BP systolic 152–178; BP diastolic 40–70; PULSE 46–63; TEMP 97.8–98.8
[2024-04-14] MEDS ORDERED: diphenhydrAMINE 50 MG/ML 1 ML VIAL IV ONE (01:30)
[2024-04-14 02:21] LABS: BASO % 0.3 % (0.0-2.0); EOS # 0.6 K/mm3 (0.0-0.7); EOS % 6.4 % (0.0-4.0); GRAN # 6.7 K/mm3 (1.4-6.5); GRAN % 69.3 % (42.2-75.2); LYMPH # 1.6 K/mm3 (1.2-3.4); MEAN CELL VOLUME 82 fl (80.0-100.0); MEAN CORPUSCULAR HGB CONC 32 g/dl (33.0-37.0); MEAN PLATELET VOLUME 9.8 fl (7.4-10.4); MONO # 0.7 K/mm3 (0.1-0.6); MONO % 6.8 % (1.7-9.3); PLATELET COUNT 295 K/mm3 (130-400); RED BLOOD COUNT 3.63 M/mm3 (4.10-5.30); REDCELL DISTRIBUTION WIDTH-CV 14.1 % (11.5-14.5)
[2024-04-14 02:22] LABS: HEMOGLOBIN 9.6 g/dl (12.5-16.0); MEAN CORPUSCULAR HEMOGLOBIN 26 pg (27-31)
[2024-04-14 02:23] LABS: HEMATOCRIT 29.8 % (37.0-47.0)
[2024-04-14 02:38] LABS: CALCIUM 9.1 mg/dL (8.4-10.2); CREATININE, serum 1.46 mg/dL (0.57-1.11); MAGNESIUM 1.8 mg/dL (1.6-2.6); POTASSIUM 4.5 mEq/L (3.5-4.5)
--- NOTE | 2024-04-14 08:47 | NUR ---
This nursing officer took report from MIRA Alba. Patient is in bed resting with bed in lowest position, with three side rails up, and call light in reach. Pt has IV in LAC with no fluids running. Pt is currently on 5L O2.
--- NOTE | 2024-04-14 09:05 | NUR ---
Patient is sitting up in bed, A&0x4. Patient reports some mild shortness of breath but denies any pain at the moment. Left AC 20g IV present, IV flushes with no issue and does not give blood return. Patient's VS stable but noted to be bradycardic on telemetry. BP pressure noted to be 178/67. Hydralazine IV push given. Patient denies any headaches at the moment. Rehcheck blood pressure via manual cuff noted to be 143/47. Patient educated to call if she needs to get up. Pt verbalized understanding. Bed lowered and locked, call lee within reach.
[2024-04-14] MEDS ORDERED: Furosemide 40 MG/4 ML VIAL IV SCH (10:00)
[2024-04-14] MEDS ORDERED: NIFEdipine XL 60 MG TAB PO SCH (12:34)
[2024-04-14] MEDS ORDERED: Carvedilol 6.25 MG TAB PO SCH (12:34)
[2024-04-14] MEDS ORDERED: NIFEdipine XL 30 MG TAB PO SCH (12:35)
--- NOTE | 2024-04-14 13:34 | NUR ---
Laser Print Operator spoke with Rashid at [facility] who accepts referral. YANNI met with patient to update her that [facility] can accept her at time of discharge for a skilled stay. YANNI Adan sent updates to Rashid via secure email for review. Discharge Plan: [facility]
--- NOTE | 2024-04-14 13:46 | NUR ---
This nurse reported off to nurse Gill. Tilat is up to chair with an IV in LAC with no fluids running. Patient is on 3L O2. Patient has call light in reach.
--- NOTE | 2024-04-14 22:49 | NUR ---
patient lying in bed, alert and oriented x4. denies chest pain and shortness of breath. up to bathroom x1 assist with walker and steady gait and back in bed. IV in LAC is patent, site is [facility]. fall precautions in place, call light within reach. pt has no further needs, questions or concerns at this time.
[2024-04-15] VITALS (7 sets, daily range): BP systolic 135–156; BP diastolic 41–48; PULSE 44–48; TEMP 98.1–98.4
[2024-04-15 06:53] LABS: BASO % 0.3 % (0.0-2.0); EOS # 0.6 K/mm3 (0.0-0.7); EOS % 6.8 % (0.0-4.0); GRAN % 63.5 % (42.2-75.2); LYMPH % 20.7 % (20.0-51.0); MEAN CELL VOLUME 84 fl (80.0-100.0); MEAN CORPUSCULAR HGB CONC 32 g/dl (33.0-37.0); MEAN PLATELET VOLUME 10.2 fl (7.4-10.4); MONO # 0.8 K/mm3 (0.1-0.6); MONO % 8.4 % (1.7-9.3); PLATELET COUNT 315 K/mm3 (130-400); RED BLOOD COUNT 3.53 M/mm3 (4.10-5.30); REDCELL DISTRIBUTION WIDTH-CV 14.3 % (11.5-14.5)
[2024-04-15 07:02] LABS: HEMATOCRIT 29.7 % (37.0-47.0); HEMOGLOBIN 9.4 g/dl (12.5-16.0); MEAN CORPUSCULAR HEMOGLOBIN 27 pg (27-31)
[2024-04-15 07:10] LABS: CALCIUM 9.1 mg/dL (8.4-10.2); CREATININE, serum 1.25 mg/dL (0.57-1.11); MAGNESIUM 2.1 mg/dL (1.6-2.6); POTASSIUM 4.1 mEq/L (3.5-4.5)
--- NOTE | 2024-04-15 08:27 | NUR ---
This nursing resident recieved report from MIRA Alba. Patient is resting in bed with O2 on via nasal cannula. Pt has an IV in LAC with no fluids running. Patient has bed in the lowest position and call light within reach.
--- NOTE | 2024-04-15 09:38 | NUR ---
Initial visit;a Patient thanked It Security Architect for introducing herself and offering Spritual Care. Patient was receptive to having It Security Architect keep her in her prayers. It Security Architect will do so and wished Mirna well.
[2024-04-15] MEDS ORDERED: BETAPACE 80MG80 MG PO (10:09)
--- NOTE | 2024-04-15 10:32 | NUR ---
Councilman attended clinical rounds with the team and patient is ready for discharge today. SW met with patient to present and review IM. Patient verbalized understanding and provided signature. SW placed form in chart and provided copy to patient. YANNI contacted Rashid at [facility] and sent discharge orders via secure email. Transport time was set for 1430 and time was provided to patient. YANNI also contacted patient's daughter, Mireya to provide transport time. Mireya's will be here this morning to bring clothes to patient. Discharge Plan; [facility]
--- NOTE | 2024-04-15 13:37 | NUR ---
This student ambassador reported off to MIRA Dickson. Pt is resting in bed with bed in lowest position and call light in reach. Patient has two bed rails up. Patient has IV in LAC with no fluids running. Pt has 3L O2 on.
--- NOTE | 2024-04-15 13:50 | NUR ---
REPORT GIVEN TO [facility] NURSE. ALL QUESTIONS ANSWERED.
--- NOTE | 2024-04-15 15:00 | NUR ---
PATIENT LEFT AWAKE AND ALERT AND ORIETNED WITH [facility] STAFF. PATIENT DENIES ANY NEEDS OR COMPLAINTS AT THIS TIME.
== END 2024-04-15 15:47 | DRG 291 ==
LOC: COL.ER 10:50 → MEDICAL 12:30 → SURG 04-13 14:50 → MEDICAL 04-13 14:50
PROVIDERS: Internal Medicine Cardiovascular Disease; Nurse Practitioner; ADMIT Hospitalist
PROC: 5A2204Z Restoration of Cardiac Rhythm, Single (ICD-10-PCS; principal; 2024-04-12)
DX: I13.2 Hypertensive heart and chronic kidney disease with heart failure and with stage 5 chronic kidney disease, or end stage renal disease (principal); I50.33 Acute on chronic diastolic (congestive) heart failure; J96.01 Acute respiratory failure with hypoxia; I95.9 Hypotension, unspecified; I25.10 Atherosclerotic heart disease of native coronary artery without angina pectoris; E87.5 Hyperkalemia; E78.5 Hyperlipidemia, unspecified; E03.9 Hypothyroidism, unspecified; F32.A Depression, unspecified; I35.0 Nonrheumatic aortic (valve) stenosis; N18.30 Chronic kidney disease, stage 3 unspecified; I48.91 Unspecified atrial fibrillation
CPT/HCPCS: J0360; J1200; J1940; J2704; J3475; J7050

== ENCOUNTER 2024-04-26 17:18 | Inpatient (IN) | payer MEDICARE ==
[~2024-04-26] VITALS: Ht 165.1 cm; Wt 61.8 kg
[~2024-04-26 17:18] MED LIST changes: +BETAPACE 80MG80 MG PO; +FERROUS SU325 MG/TAB PO; +MIRALAX PA17 GM/Dose PO
[2024-04-26 17:45] LABS: BASO # 0.1 K/mm3 (0.0-0.2); BASO % 0.3 % (0.0-2.0); EOS # 0.1 K/mm3 (0.0-0.7); EOS % 0.6 % (0.0-4.0); GRAN # 13.8 K/mm3 (1.4-6.5); LYMPH # 1.5 K/mm3 (1.2-3.4); LYMPH % 8.8 % (20.0-51.0); MEAN CELL VOLUME 84 fl (80.0-100.0); MEAN CORPUSCULAR HGB CONC 31 g/dl (33.0-37.0); MEAN PLATELET VOLUME 9.4 fl (7.4-10.4); MONO % 6.1 % (1.7-9.3); PLATELET COUNT 313 K/mm3 (130-400); RED BLOOD COUNT 3.77 M/mm3 (4.10-5.30); REDCELL DISTRIBUTION WIDTH-CV 14.1 % (11.5-14.5)
[2024-04-26 17:48] LABS: HEMATOCRIT 31.6 % (37.0-47.0); HEMOGLOBIN 9.9 g/dl (12.5-16.0); MEAN CORPUSCULAR HEMOGLOBIN 26 pg (27-31)
[2024-04-26 17:51] LABS: INR 1.1 (0.8-3.0); PROTHROMBIN TIME 12.1 SECONDS (9.7-12.8)
[2024-04-26 17:59] LABS: ALBUMIN 2.9 g/dL (3.4-4.8); BILIRUBIN,TOTAL 0.6 mg/dL (0.2-1.2); CALCIUM 9.4 mg/dL (8.4-10.2); CREATININE, serum 1.21 mg/dL (0.57-1.11); MAGNESIUM 1.8 mg/dL (1.6-2.6); POTASSIUM 4.7 mEq/L (3.5-4.5); TOTAL PROTEIN 6.9 g/dl (6.2-8.1)
[2024-04-26 18:05] LABS: TROPONIN-I 0.019 ng/mL (0.00-0.033)
[2024-04-26] MEDS ORDERED: fentaNYL 50 MCG/ML 2 ML VIAL IV ONE (18:45)
[2024-04-26] MEDS ORDERED: cefTRIAXone 2 G in Water For Injection,Sterile 20 ML IV ONE (19:00)
[2024-04-26] MEDS ORDERED: Azithromycin 250 MG TAB PO ONE (19:00)
[2024-04-26] MEDS ORDERED: Iohexol 350 - 100 ML VIAL IV ONE (19:41)
[2024-04-26] MEDS ORDERED: NS 100 ML IV ONE (19:41)
[2024-04-26] MEDS ORDERED: Acetaminophen 325 MG TAB PO PRN (20:00)
[2024-04-26] MEDS ORDERED: Albuterol/Ipratropium 3 MG-0.5 MG/3 ML Neb Soln IH PRN (20:00)
[2024-04-26] MEDS ORDERED: Atorvastatin 80 MG TAB PO SCH (21:00)
[2024-04-26] MEDS ORDERED: NIFEdipine XL 30 MG TAB PO SCH (21:00)
[2024-04-26] MEDS ORDERED: NIFEdipine XL 60 MG TAB PO SCH (21:00)
[2024-04-26] MEDS ORDERED: Cyanocobalamin (Vit B-12) 1,000 MCG TAB PO SCH (21:00)
--- NOTE | 2024-04-26 21:40 | NUR ---
Patient arrived to surgical unit from ER at this time.
[2024-04-26 21:41] VITALS: BP 181/61; PULSE 62; TEMP 98.9
[2024-04-26 22:10] VITALS: BP_SYST 181
[2024-04-27] VITALS (12 sets, daily range): BP systolic 128–151; BP diastolic 40–65; PULSE 46–55; TEMP 98.3–99.5
[2024-04-27] MEDS ORDERED: CLARITIN 1010 MG/TAB PO (01:53)
[2024-04-27] MEDS ORDERED: ATARAX 25MG25 MG/TAB PO (01:54)
[2024-04-27] MEDS ORDERED: ATARAX 25MG25 MG/TAB (01:54)
[2024-04-27] MEDS ORDERED: NITROSTAT0.4 MG/TAB SL (01:56)
[2024-04-27] MEDS ORDERED: BUMEX2 MG PO (01:57)
--- NOTE | 2024-04-27 02:01 | NUR ---
Patient sitting up in bed resting, but awoken upon nurse entry, A&Ox4. Patient admitted to room 24 for chest pain workup. Patient denies any pain at this moment. Patient c/o constipation which is usually made better by using Miralax daily. Patient denies any N/V/D at this time. Right 20g forearm IV clean, dry and intact. 2L O2 nasal cannula sating at 93%. Patient ambulated to the bedside commode via x1 assist and had 200mL output of clear/yellow urine and x1 hard, brown BM. Patient educated to call if she needs help, has chest pain or wants to get up. Patient verbalized understanding. Bed lowered and locked, call lee within reach.
[2024-04-27] MEDS ORDERED: Albuterol/Ipratropium 3 MG-0.5 MG/3 ML Neb Soln IH PRN (05:30)
--- NOTE | 2024-04-27 06:26 | NUR ---
Patient laying down in bed, sleeping. She c/o constipation but had x1 BM around 2300. Patient is a x1 assist to the bedside commode. Right forearm IV clean, dry and intact. Blood return noted and flushed. Patient educated to call for help and verbalized understanding. Bed lowered and locked, call lee within reach.
[2024-04-27 07:03] LABS: BASO % 0.3 % (0.0-2.0); EOS % 0.1 % (0.0-4.0); GRAN # 11.4 K/mm3 (1.4-6.5); GRAN % 76.4 % (42.2-75.2); LYMPH % 13.4 % (20.0-51.0); MEAN CELL VOLUME 84 fl (80.0-100.0); MEAN CORPUSCULAR HGB CONC 32 g/dl (33.0-37.0); MEAN PLATELET VOLUME 10.2 fl (7.4-10.4); MONO # 1.4 K/mm3 (0.1-0.6); MONO % 9.5 % (1.7-9.3); PLATELET COUNT 256 K/mm3 (130-400); RED BLOOD COUNT 3.43 M/mm3 (4.10-5.30); REDCELL DISTRIBUTION WIDTH-CV 14.8 % (11.5-14.5)
[2024-04-27 07:04] LABS: HEMATOCRIT 28.9 % (37.0-47.0); HEMOGLOBIN 9.2 g/dl (12.5-16.0); MEAN CORPUSCULAR HEMOGLOBIN 27 pg (27-31)
[2024-04-27] MEDS ORDERED: Bumetanide 1 MG TAB PO SCH (09:00)
[2024-04-27] MEDS ORDERED: Losartan 50 MG TAB PO SCH (09:00)
[2024-04-27] MEDS ORDERED: Citalopram 20 MG TAB PO SCH (09:00)
[2024-04-27] MEDS ORDERED: Furosemide 40 MG/4 ML VIAL IV ONE (10:00)
--- NOTE | 2024-04-27 11:12 | NUR ---
Initial visit; Patient somewhat confused and says she is. She thought she was in [facility] but Fitness Sales Associate helped her get her focus. She thanked Fitness Sales Associate for helping her and wishing her God's blessings.
--- NOTE | 2024-04-27 13:01 | NUR ---
Support Director met with patient to discuss discharge planning. Patient was recently hospitalized here and discharged to [facility]. Patient was living at the [facility] prior to admission to [facility]. Patient sees Dr. Bosch for primary care. Patient uses a walker for ambulation. Patient has DPOA-HC in EMR that designates her daughter, Mireya (ph#[phone]). Patient plans to return to [facility] at time of discharge. YANNI contacted Mireya to discuss discharge planning and she was unaware patient was hospitalized. Mireya advised patient is looking at staying at [facility] for LTC. YANNI contacted Rashid and sent clinical updates via secure email. YANNI notified Rashid that Mireya was unaware patient was admitted. Discharge Plan: [facility]
--- NOTE | 2024-04-27 13:29 | NUR ---
Pt sitting up in the chair and just finished her lunch. Pt only had a few bites and stated she was full. I did assist her to the restroom, she used a walker getting from the chair to the bathroom and then to bed. Once she got back to bed, she was short of breath. Pt stated that after she rested for a little while, she would be okay. Pt does have O2 on per NC at 3L. Bed alarm on
--- NOTE | 2024-04-27 14:06 | NUR ---
I was told in report that pt did not want her daughter informed she was here and did not want any information given out to her. Pts daughter, Mireya, did just call regarding the pt. I did go in and talk with jarad and she stated that I could discuss her care/condition with Mireya. She said that she does not recall telling anyone to withold information from Mierya. I did talk with Mireya, updated her on pt and then transferred Mireya to Jarad
--- NOTE | 2024-04-27 16:20 | NUR ---
company laundry worker attended the multidisciplinary team meeting. Patient is not medically ready for discharge. Once medically ready, patient will return to [facility] for skilled rehab. Everyone was in agreement with this plan. DIscharge plan: [facility]
--- NOTE | 2024-04-27 19:04 | NUR ---
Pt has continued to do okay throughout the day. Occassionally appears to be short of breath, O2 sats remain >90%. Pt does not eat much during meal times, but states that she is not hungry. Pt sitting up in the chair, chair alarm on, call light within reach. Report given
--- NOTE | 2024-04-27 19:20 | NUR ---
Patient sitting up in bed resting, but awoken upon nurse entry, A&Ox4. Patient denies any pain at this moment. Patient has a R 20G IV, that is clean dry and intact, flushed and blood return noted. Patient educated to call if she needs to get up to use the restroom. Bed lowered and locked, call lee within reach.
[2024-04-27] MEDS ORDERED: cefTRIAXone 1 G in Water For Injection,Sterile 10 ML IV SCH (21:00)
[2024-04-27] MEDS ORDERED: Azithromycin 500 MG in NS 250 ML IV SCH (21:00)
[2024-04-27 23:25] LABS: C-REACTIVE PROTEIN 8.46 mg/dL (0.00-0.50); CALCIUM 8.9 mg/dL (8.4-10.2); CREATININE, serum 1.32 mg/dL (0.57-1.11); POTASSIUM 4.8 mEq/L (3.5-4.5)
[2024-04-28] VITALS (12 sets, daily range): BP systolic 102–124; BP diastolic 42–59; PULSE 45–91; TEMP 97.5–99.1
[2024-04-28] MEDS ORDERED: DESYREL 50MG50 MG PO (01:47)
[2024-04-28] MEDS ORDERED: traZODone 50 MG TAB PO SCH (01:49)
--- NOTE | 2024-04-28 05:52 | NUR ---
Patient noted to be in A FIB by MIRA Vang. Notified primary nurse/charge nurse Neha. Ciera had already called process safety engineering technologist to confirm. process safety engineering technologist states patient went into A FIB at 0500-primary nurse had not been notified. Spoke with BRITNEY Samuels and informed of A FIB now. EKG order placed and RT notified of new orders. Will be up to do EKG for verification.
--- NOTE | 2024-04-28 06:04 | NUR ---
Patient sitting up in bed, A&ox4. AFIB present on tele monitor. Oncall provider Walt TAN made aware of change in patient condition. No new orders recieved at this time. Protocol EKG preformed and vital signs obtained. BP- 114/72, heart rate- 58, O2 sats- 92% on 6L oxymask, temperature- 98.7F. Patient denies any chest pain, shortness of breath, dizziness and any other new pains. Patient reports increased feelings of anxiety and states she is "worried about her end" with her O2 saturation dropping earlier. Patient re-assured and educated that we will monitor her closely and continue taking frequent O2 saturations.
[2024-04-28 07:44] LABS: BASO % 0.3 % (0.0-2.0); EOS # 0.2 K/mm3 (0.0-0.7); EOS % 1.3 % (0.0-4.0); GRAN # 8.7 K/mm3 (1.4-6.5); GRAN % 75.3 % (42.2-75.2); LYMPH # 1.7 K/mm3 (1.2-3.4); LYMPH % 14.9 % (20.0-51.0); MEAN CELL VOLUME 83 fl (80.0-100.0); MEAN CORPUSCULAR HGB CONC 32 g/dl (33.0-37.0); MEAN PLATELET VOLUME 9.8 fl (7.4-10.4); MONO # 0.9 K/mm3 (0.1-0.6); MONO % 7.9 % (1.7-9.3); PLATELET COUNT 218 K/mm3 (130-400); RED BLOOD COUNT 3.32 M/mm3 (4.10-5.30); REDCELL DISTRIBUTION WIDTH-CV 14.6 % (11.5-14.5)
[2024-04-28 07:46] LABS: HEMATOCRIT 27.7 % (37.0-47.0); HEMOGLOBIN 8.9 g/dl (12.5-16.0); MEAN CORPUSCULAR HEMOGLOBIN 27 pg (27-31)
[2024-04-28 08:03] LABS: CALCIUM 8.5 mg/dL (8.4-10.2); CREATININE, serum 1.57 mg/dL (0.57-1.11); MAGNESIUM 1.8 mg/dL (1.6-2.6); POTASSIUM 4.4 mEq/L (3.5-4.5)
[2024-04-28] MEDS ORDERED: Amiodarone 450 MG in D5W Excel 250 ML IV SCH ×2 (10:05→16:05)
--- NOTE | 2024-04-28 10:05 | NUR ---
THIS RN RECEIVED CALL FROM [place] RN WITH CARDIOLOGY WHO SAID PATIENT DOES NOT NEED PICC LINE D/T DR EVANS NOT PLANNING FOR PATIENT TO BE ON AMIO FOR <24 HRS. ORDER DISCONTINUED.
[2024-04-28] MEDS ORDERED: LR 1,000 ML IV SCH (10:45)
--- NOTE | 2024-04-28 12:29 | NUR ---
YANNI attended interdisciplinary clinical rounding. Patient is not medically ready for discharge at this time. auto body worker secure emailed clinical updates to Rashid at [facility]. Discharge plan: [facility]
--- NOTE | 2024-04-28 13:01 | NUR ---
RN WAS NOTIFIED BY AUDIO DIRECTOR THAT PATIENT CONVERTED INTO SINUS RHYTHM. THIS RN NOTIFIED DR MEZA AND DR EVANS. SEE NEW ORDERS
--- NOTE | 2024-04-28 22:35 | NUR ---
patient is laying down in bed, A&Ox4. She reports some mild anxiety but denies any chest pain or shortness of breath at this time. Right forearm 20g IV noted to be clean, dry and intact with amnio drip at 17.3mg/min. pt tolerating well. Right AC 22g IV placed for IV antibiotics. Pt tolerated well. Patient educated to call if she needs to go to the bathroom. Bed lowered and locked, call lee within reach.
[2024-04-28] MEDS ORDERED: Albuterol/Ipratropium 3 MG-0.5 MG/3 ML Neb Soln IH PRN (23:45)
--- NOTE | 2024-04-28 23:45 | NUR ---
Report from PCT that patient O2 saturation is only 84% with oxymask at 7L. This nurse to room as well as MIRA Gill. Current vitals BP 90s/40s, Pulse 48, RR 28, Temp 97.8 axillary. Patient is very anxious at this time. Spoke with BRITNEY Samuels as patient is currently on an amio drip. TORB to continue amio drip. RT notified of increased O2 needs and at bedside now. RT adjusted O2 to 15L/Oxymask with saturations in the high 80s. Charge nurse MIRA Ronquillo also at bedside. Spoke with BRITNEY Samuels-current saturatons given/ increased O2 needs - TORB for duonebs. RT at bedside to administer now-currently patient on 15L/Oxymask new pulse ox applied to ear with better readings-high 90%. RT adjusted O2 and nasal canula applied. Current O2 5L/NC with sats 93%. Patient gagging and states she is nauseated but also states she has phlegm stuck. Spoke with BRITNEY Samuels again and new orders received and initiated for zofran. Given at this time. New 22g placed to right AC as IV was pulled out during episode. Antibiotics restarted. Patient states she feels much better now. Requesting Willow cough drops. Will inquire with hospitalist again. Patient currently resting in bed comfortably.
[2024-04-29] VITALS (26 sets, daily range): BP systolic 95–139; BP diastolic 39–71; PULSE 44–91; TEMP 97.4–98.6
[2024-04-29] MEDS ORDERED: Ondansetron 4 MG/2 ML VIAL IV PRN (00:15)
--- NOTE | 2024-04-29 00:44 | NUR ---
Patient remains on 5L/NC with O2 saturations 93%. Patient resting comfortably in bed. Will monitor.
[2024-04-29] MEDS ORDERED: Menthol Cough/Sore Throat LOZENGE MM PRN (01:00)
--- NOTE | 2024-04-29 02:41 | NUR ---
PATIENT LAYING DOWN IN BED NOTED TO BE SLEEPING. O2 SATURATION NOTED TO BE AT 85% ON 5L NC. OXYMASK APPLIED RUNNING AT 10L. PATIENT NOTED TO BE AT BASELINE WITH INCREASED WOB BUT SLEEPY. PATIENT AWOKEN AND INSTRUCTED TO TAKE DEEP BREATHS. O2 SATURATION SITTING BETWEEN 90-92%. RT CALLED AND UPDATED IN CHANGE OF OXYGEN REQUIREMENTS. RT SEEN PATIENT AND ADJUSTED OXYGEN TO 8L. PATIENT STABLE AND SATING AT 96%. RT REACHED OUT TO BRITNEY GILL FOR UPDATE AND ORDERS. RENATA TAN CAME UP TO SEE PATIENT. ORDERS RECIEVED FOR CHEST X RAY IN THE AM AND A BNP TO BE DRAWN WITH LABS. CONCERN OVER CODE STATUS BROUGHT UP TO ONCALL PROVIDER. HE STATES HE WILL PUT IN A NOTE TO DAY SHIFT. PATIENT IS ANXIOUS ABOUT THE END OF HER LIFE AND STATES THIS FREQUENTLY.
--- NOTE | 2024-04-29 02:44 | NUR ---
BRITNEY Samuels at bedside to assess patient.
--- NOTE | 2024-04-29 03:49 | NUR ---
Patients MEWs score is a 3 due to bradycardia and low BP. BRITNEY Samuels aware. Charge nurse and overnight houseperson aware. Will continue to monitor.
[2024-04-29 07:53] LABS: BASO # 0.1 K/mm3 (0.0-0.2); BASO % 0.4 % (0.0-2.0); EOS # 0.1 K/mm3 (0.0-0.7); EOS % 1.1 % (0.0-4.0); GRAN # 9.4 K/mm3 (1.4-6.5); GRAN % 74.5 % (42.2-75.2); LYMPH % 16.1 % (20.0-51.0); MEAN CELL VOLUME 83 fl (80.0-100.0); MEAN CORPUSCULAR HGB CONC 32 g/dl (33.0-37.0); MEAN PLATELET VOLUME 10.5 fl (7.4-10.4); MONO # 0.9 K/mm3 (0.1-0.6); MONO % 7.4 % (1.7-9.3); PLATELET COUNT 227 K/mm3 (130-400); RED BLOOD COUNT 3.09 M/mm3 (4.10-5.30); REDCELL DISTRIBUTION WIDTH-CV 14.5 % (11.5-14.5)
[2024-04-29 07:57] LABS: HEMATOCRIT 25.7 % (37.0-47.0); HEMOGLOBIN 8.2 g/dl (12.5-16.0); MEAN CORPUSCULAR HEMOGLOBIN 27 pg (27-31)
[2024-04-29 08:06] LABS: CALCIUM 8.2 mg/dL (8.4-10.2); CREATININE, serum 2.53 mg/dL (0.57-1.11); POTASSIUM 4.4 mEq/L (3.5-4.5)
[2024-04-29] MEDS ORDERED: Amiodarone 200 MG TAB PO SCH (09:00)
--- NOTE | 2024-04-29 09:43 | NUR ---
Patient resting in bed, alert and oriented. Assisted with her hearing aid on the right. Dr. Sesay in ther to talk to pt. Assessment completed, amiodarone gtt discontiued per orders. Oral dose provided. No further needs at this time. Call light within reach.
--- NOTE | 2024-04-29 10:11 | NUR ---
Ekg Manager sent clinical updates to Rashid at [facility] via secure email.
[2024-04-29] MEDS ORDERED: Regadenoson 0.08 MG/ML 5 ML SYRINGE IV SCH (11:30)
--- NOTE | 2024-04-29 12:17 | NUR ---
Patient is back from [facility].
--- NOTE | 2024-04-29 13:50 | NUR ---
Dr. Reyes finished with thoracentesis, samples sent to lab.
[2024-04-29 15:52] LABS: PLEURAL FLUID RBC 2000 /mm3 (0-0); PLEURAL FLUID WBC 704 /mm3
[2024-04-29 15:53] LABS: PLEURAL FLUID APPEARANCE HAZY; PLEURAL FLUID COLOR YELLOW
--- NOTE | 2024-04-29 18:36 | NUR ---
Patient continues with 4L O2 NC. Has been sleeping and stable. Report will be given to night RN.
--- NOTE | 2024-04-29 23:45 | NUR ---
PATIENT ALERT AND ORIENTED X2 WITH INTERMITTENT CONFUSION. PATIENT REPORTS THAT SHE GETS CONFUSED AT NIGHT AND DOESN'T REMEMBER WHAT SHE DOES. PATIENT REMINDED TO UTILIZE CALL LIGHT. PM MEDS ADMINISTERED. PATIENT DENIES ANY FURTHER NEEDS. CALL LIGHT IN REACH. BED ALARM ON.
[2024-04-29 23:49] LABS: BODY FLUID PH (AMS) 9 (())
[2024-04-30] VITALS (13 sets, daily range): BP systolic 106–130; BP diastolic 41–63; PULSE 49–90; TEMP 98–99.9
[2024-04-30 06:08] LABS: BASO % 0.4 % (0.0-2.0); EOS # 0.2 K/mm3 (0.0-0.7); EOS % 2.1 % (0.0-4.0); GRAN # 7.9 K/mm3 (1.4-6.5); GRAN % 77.2 % (42.2-75.2); LYMPH # 1.3 K/mm3 (1.2-3.4); LYMPH % 12.3 % (20.0-51.0); MEAN CELL VOLUME 85 fl (80.0-100.0); MEAN CORPUSCULAR HGB CONC 31 g/dl (33.0-37.0); MEAN PLATELET VOLUME 10.5 fl (7.4-10.4); MONO # 0.8 K/mm3 (0.1-0.6); MONO % 7.6 % (1.7-9.3); PLATELET COUNT 241 K/mm3 (130-400); REDCELL DISTRIBUTION WIDTH-CV 14.2 % (11.5-14.5)
[2024-04-30 06:17] LABS: HEMATOCRIT 27.9 % (37.0-47.0); HEMOGLOBIN 8.7 g/dl (12.5-16.0); MEAN CORPUSCULAR HEMOGLOBIN 26 pg (27-31)
[2024-04-30 06:34] LABS: CALCIUM 8.1 mg/dL (8.4-10.2); CREATININE, serum 2.84 mg/dL (0.57-1.11); MAGNESIUM 2.1 mg/dL (1.6-2.6); POTASSIUM 4.3 mEq/L (3.5-4.5)
--- NOTE | 2024-04-30 09:32 | NUR ---
Assessment completed. Pt on 6L high flow/NC. Pt was 88-89% on 5L/NC at shift change and was placed on HF at 6L. Pt sitting up in chair. Denies SOA or pain. IV site to RFA red and swollen. Pt c/o discomfort when flushed with NS-IV site d/c'd with cath tip intact. Fall precautions in place.
--- NOTE | 2024-04-30 16:36 | NUR ---
SW faxed clinical updates to [facility].
--- NOTE | 2024-04-30 17:00 | NUR ---
Pt sat up in chair until mid afternoon. Now resting in bed. Denies pain or needs at this time. Fall precautions in place.
--- NOTE | 2024-04-30 22:12 | NUR ---
BEDSIDE SHIFT REOPRT GIVEN. NO COMPLAINTS AT THIS TIME. CALL LIGHT IS WITHIN REACH. ASSESSMENT COMPLETED EARLIER. MEDICATIONS ADMINISTERED PER EMAR. PT IS CURRENTLY ON O2 6L PER HIGH FLOW N/C. PT IS UP IN BED WATCHING FOOTBALL.
--- NOTE | 2024-04-30 23:36 | NUR ---
IV STARTED BY MIRA CHAPPELL ON DAY SHIFT 04/30
[2024-05-01] VITALS (15 sets, daily range): BP systolic 105–133; BP diastolic 44–78; PULSE 50–59; TEMP 98–99.1
--- NOTE | 2024-05-01 05:28 | NUR ---
NOTIFIED BRITNEY HOU OF RHYTHM CHANGE FROM A-FIB TO JUNCTIONAL RHYTHM.
[2024-05-01 06:28] LABS: BASO % 0.3 % (0.0-2.0); EOS # 0.2 K/mm3 (0.0-0.7); EOS % 2.1 % (0.0-4.0); GRAN # 7.2 K/mm3 (1.4-6.5); GRAN % 77.4 % (42.2-75.2); LYMPH # 1.1 K/mm3 (1.2-3.4); MEAN CELL VOLUME 82 fl (80.0-100.0); MEAN CORPUSCULAR HGB CONC 32 g/dl (33.0-37.0); MEAN PLATELET VOLUME 10.5 fl (7.4-10.4); MONO # 0.7 K/mm3 (0.1-0.6); MONO % 7.8 % (1.7-9.3); PLATELET COUNT 257 K/mm3 (130-400); RED BLOOD COUNT 3.37 M/mm3 (4.10-5.30); REDCELL DISTRIBUTION WIDTH-CV 13.9 % (11.5-14.5)
[2024-05-01 06:33] LABS: CALCIUM 8.2 mg/dL (8.4-10.2); CREATININE, serum 2.49 mg/dL (0.57-1.11); MAGNESIUM 2.2 mg/dL (1.6-2.6)
[2024-05-01 06:36] LABS: HEMATOCRIT 27.7 % (37.0-47.0); HEMOGLOBIN 8.9 g/dl (12.5-16.0); MEAN CORPUSCULAR HEMOGLOBIN 26 pg (27-31)
--- NOTE | 2024-05-01 08:20 | NUR ---
Assessment complete. O2 6L high flow nasal cannula. SOA noted at rest. Pt denies pain or needs at this time. Requests to sleep a little longer before getting up to the chair to ear breakfast.
--- NOTE | 2024-05-01 12:03 | NUR ---
This nurse came to the nurses desk at 1142 and was told by ERIKA Herrera that Dr. Reyes came in and performed bedside thoracentesis (at 1135) and that RAUL Olvera assisted. This nurse was down the nieves in another patient's room during this time and was not made aware that Dr. Reyes was here to perform thoracentesis. This nurse did not have the consent signed prior to procedure due to lack of clarification of right or left thoracentesis in procedure consent that was placed in chart. This nurse was going to clarify prior to procedure today. Fluid specimens sent to lab. Post op vss- see flowsheet. Pt denies SOA or pain at this time.
[2024-05-01 12:17] LABS: PLEURAL FLUID RBC 12000 /mm3 (0-0); PLEURAL FLUID WBC 2672 /mm3
[2024-05-01 12:25] LABS: PLEURAL FLUID APPEARANCE CLOUDY; PLEURAL FLUID COLOR AMBER
--- NOTE | 2024-05-01 14:30 | NUR ---
X1 assist to chair. Fall precautions in place.
--- NOTE | 2024-05-01 15:14 | NUR ---
social service worker faxed clinical updates to [facility].
--- NOTE | 2024-05-01 22:01 | NUR ---
PATIENT ALERT AND ORIENTED X4. VSS. PATIENT HERE FOR CHEST PAIN, SOB. IV TO RIGHT AC INT AND FLUSHES WELL. PM MEDS ADMINISTERED. PATIENT ON 5L HFNC. PATIENT RESTING IN BED. CALL LIGHT IN REACH. BED ALARM ON.
[2024-05-02] VITALS (13 sets, daily range): BP systolic 105–131; BP diastolic 34–60; PULSE 54–60; TEMP 97.5–98.8
[2024-05-02 06:31] LABS: BASO % 0.3 % (0.0-2.0); EOS # 0.1 K/mm3 (0.0-0.7); EOS % 1.1 % (0.0-4.0); GRAN # 7.6 K/mm3 (1.4-6.5); LYMPH # 1.6 K/mm3 (1.2-3.4); LYMPH % 15.6 % (20.0-51.0); MEAN CELL VOLUME 83 fl (80.0-100.0); MEAN CORPUSCULAR HGB CONC 32 g/dl (33.0-37.0); MEAN PLATELET VOLUME 10.5 fl (7.4-10.4); MONO # 0.9 K/mm3 (0.1-0.6); MONO % 8.7 % (1.7-9.3); PLATELET COUNT 267 K/mm3 (130-400); RED BLOOD COUNT 3.13 M/mm3 (4.10-5.30)
[2024-05-02 06:33] LABS: HEMOGLOBIN 8.2 g/dl (12.5-16.0); MEAN CORPUSCULAR HEMOGLOBIN 26 pg (27-31)
[2024-05-02 06:50] LABS: CALCIUM 7.5 mg/dL (8.4-10.2); CREATININE, serum 2.24 mg/dL (0.57-1.11); POTASSIUM 4.1 mEq/L (3.5-4.5)
[2024-05-02] MEDS ORDERED: Furosemide 100 MG/10 ML VIAL IV SCH (10:30)
--- NOTE | 2024-05-02 16:07 | NUR ---
barnworker groom secure emailed clinical updates to [facility]. YANNI was notified patient may be medically ready for discharge tomorrow. YANNI contacted Rashid at [facility] and explained she would keep him updated if patient were to discharge tomorrow. Discharge plan: [facility]
[2024-05-02 16:49] LABS: BODY FLUID PH (AMS) 8 (())
--- NOTE | 2024-05-02 19:24 | NUR ---
PT SITTING IN CHAIR. NO COMPLAINTS AT THIS TIME. CALLL LIGHT IN REACH.
[2024-05-03 03:31] VITALS: BP 126/41; PULSE 62; TEMP 91
--- NOTE | 2024-05-03 04:59 | NUR ---
ASSESSMENT COMPLETED EARLIER. MEDICATIONS ADMINISTERED PER EMAR. PT COMPLAINED OF NAUSEA EARLIER IN THE SHIFT. ADMINISTERED ZOFRAN- THIS RELIEVED PT SYMPTOMS. NO OTHER COMPLAINTS AT THIS TIME. CALL LIGHT IS WITHIN REACH.
[2024-05-03 05:22] VITALS: BP_SYST 126; TEMP 98.5
[2024-05-03 07:16] VITALS: BP 129/52; PULSE 58; TEMP 98.4
[2024-05-03 07:53] LABS: CALCIUM 8.4 mg/dL (8.4-10.2); CREATININE, serum 1.75 mg/dL (0.57-1.11); MAGNESIUM 2.2 mg/dL (1.6-2.6); POTASSIUM 4.1 mEq/L (3.5-4.5)
--- NOTE | 2024-05-03 08:37 | NUR ---
Dorsalis pedis and posterior tibial pulses on left lower extremety weak. Dorsalis pedis and posterior tibial pusles of right lower extermety strong. Nurse notified.
[2024-05-03 09:00] VITALS: BP_SYST 129
--- NOTE | 2024-05-03 09:07 | NUR ---
PATIENT ALERT AND ORIENTED X4. VSS. PATIENT HERE FOR CHEST PAIN/SOB. PATIENT ON 3LNC. PATIENT DENIES ANY PAIN. AM MEDS ADMINISTERED. PATIENT DENIES ANY FURTHER NEEDS. CALL LIGHT IN REACH. BED ALARM ON.
--- NOTE | 2024-05-03 10:03 | NUR ---
municipal maintenance worker attended interdisciplinary clinical rounding with Dr. Hylton. Patient is waiting medical clearance from pulmonology and cardiology but Dr. Hylton has medically cleared from the hospitalist standpoint. YANNI met with patient and reviewed the important message from Medicare. Patient understood and had no questions. Patient signed the form. SW made a copy, placed original in chart and provided copy to patient. Patient requested psych social worker make a copy of patient's medicaid card to send to [facility]. SW made copy and placed on patient's chart. YANNI contacted patient's daughter, Mireya, and informed her patient is pending clearance from cardiology and pulmonary but may be able to discharge today to [facility]. YANNI reviewed important message from Medicare with Mireya. No questions or concerns at this time. YANNI contacted Rashid from [facility] and explained they were waiting on cardiology to see patient but may be ready to go today. YANNI secure emailed clinical updates and Medicaid card to Rashid at [facility]. YANNI asked patient's nurse to contact her once patient is cleared from cardiology and pulmonology, so she can schedule her transportation. Patient's nurse stated she would. Discharge plan: Return to [facility]
[2024-05-03 11:03] VITALS: BP 140/67; PULSE 64; TEMP 98.2
[2024-05-03] MEDS ORDERED: PACERONE400 MG PO (11:33)
--- NOTE | 2024-05-03 12:20 | NUR ---
donation worker secure emailed discharge orders to Rashid at [facility]. YANNI scheduled transportation for 115 pm. YANNI notified patient's nurse and superintendent ammunition storage. Discharge plan: [facility]
[2024-05-03 13:00] VITALS: BP_SYST 140
--- NOTE | 2024-05-03 13:18 | NUR ---
REPORT CALLED TO ELIEZER AT [facility]. NUMBER LEFT WITH NURSE IN CASE OF QUESTIONS. PACKET GIVEN TO TRANSPORTER. OXYGEN HOOKED UP TO PORTABLE O2. PATIENT PLACED IN WC AND ESCORTED OUT WITH TRANSPORTER.
[2024-05-11] VITALS (432 sets, daily range): O2SAT 84–97
== END 2024-05-03 13:20 | DRG 291 ==
LOC: COL.ER 17:18 → SURG 19:09
PROVIDERS: Family Medicine; Internal Medicine; Internal Medicine Pulmonary Disease; Physician Assistant; ADMIT Internal Medicine
PROC: 0B9P30Z Drainage of Left Pleura with Drainage Device, Percutaneous Approach (ICD-10-PCS; principal; 2024-05-01)
PROC: 30233N1 Transfusion of Nonautologous Red Blood Cells into Peripheral Vein, Percutaneous Approach (ICD-10-PCS; 2024-05-01)
DX: I13.0 Hypertensive heart and chronic kidney disease with heart failure and stage 1 through stage 4 chronic kidney disease, or unspecified chronic kidney disease (principal); J96.21 Acute and chronic respiratory failure with hypoxia; N17.9 Acute kidney failure, unspecified; J91.8 Pleural effusion in other conditions classified elsewhere; Z79.899 Other long term (current) drug therapy; Z87.19 Personal history of other diseases of the digestive system; Z86.79 Personal history of other diseases of the circulatory system; F32.A Depression, unspecified; N18.9 Chronic kidney disease, unspecified; Z95.2 Presence of prosthetic heart valve; Z88.0 Allergy status to penicillin; Z88.8 Allergy status to other drugs, medicaments and biological substances; Z79.01 Long term (current) use of anticoagulants; I50.9 Heart failure, unspecified; E87.5 Hyperkalemia; E78.5 Hyperlipidemia, unspecified; D64.9 Anemia, unspecified; E03.9 Hypothyroidism, unspecified; Z79.890 Hormone replacement therapy; I48.0 Paroxysmal atrial fibrillation; R00.1 Bradycardia, unspecified; Z23 Encounter for immunization
CPT/HCPCS: A9500-JZ; J0282; J0456; J0696; J1650; J1940; J2405; J2785; J3010; J7050; J7060; Q3014; Q9967